=== PATIENT | female | born 1935 | race Caucasian/White ===

== ENCOUNTER 2018-05-02 12:14 | Emergency (ER) | payer MEDICARE, BC ==
--- NOTE | 2018-05-02 13:34 | EDM.PDOC ---
ED HPI GENERAL MEDICAL PROBLEM - General Chief Complaint: Lower Extremity Injury/Pain Stated Complaint: INJURED RIGHT FOOT Time Seen by Provider: 05/02/18 13:33 Source of Information: Reports: Patient, RN History Limitations: Reports: No Limitations - History of Present Illness INITIAL COMMENTS - FREE TEXT/NARRATIVE: 83 yo female here with a foot injury from struggling to get through a stuck door and ended up falling when it suddenly burst open. Has pain to the distal R foot. 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 (see below) (none) Right Feet Pain Score (Numeric/FACES): 8 - Related Data Allergies Allergy/AdvReac Type Severity Reaction Status Date / Time No Known Allergies Allergy Verified 05/02/18 13:15 Home Meds: Home Meds Atenolol 02/26/14 [History] Baby Aspirin 02/26/14 [History] Calcium 02/26/14 [History] Fish Oil 02/26/14 [History] Fosamax 02/26/14 [History] Glucosamine Chondroitin 02/26/14 [History] Levothyroxine 02/26/14 [History] Omeprazole 02/26/14 [History] Tylenol 02/26/14 [History] Past Medical History HEENT History: Reports: Cataract, Impaired Vision Cardiovascular History: Reports: High Cholesterol, Hypertension Genitourinary History: Reports: Other (See Below) Other Genitourinary History: kidney cancer Musculoskeletal History: Reports: Fracture, Osteoporosis Endocrine/Metabolic History: Reports: Hypothyroidism Oncologic (Cancer) History: Reports: Renal - Past Surgical History HEENT Surgical History: Reports: Cataract Surgery GI Surgical History: Reports: Cholecystectomy, Other (See Below) Other GI Surgeries/Procedures: partial pancreas/spleen Musculoskeletal Surgical History: Reports: Hip Replacement, Knee Replacement Social & Family History - Tobacco Use Smoking Status *Q: Never Smoker - Alcohol Use Days Per Week of Alcohol Use: 7 Number of Drinks Per Day: 1 Total Drinks Per Week: 7 - Recreational Drug Use Recreational Drug Use: No Review of Systems - Review of Systems Review Of Systems: See Below Constitutional: Reports: No Symptoms Musculoskeletal: Reports: Foot Pain (right) Skin: Reports: No Symptoms Neurological: Reports: No Symptoms ED EXAM, GENERAL - Physical Exam Exam: See Below Exam Limited By: No Limitations General Appearance: Alert, WD/WN, No Apparent Distress Extremities: Pedal Edema, Other (distal foot R pain) Neurological: Alert, Oriented, CN II-XII Intact, Normal Cognition, No Motor/ Sensory Deficits Psychiatric: Normal Affect, Normal Mood Skin Exam: Warm, Dry, Intact, Normal Color, No Rash Course - Vital Signs Text/Narrative:: Has an orthopedic doctor back home in the [facility] she is going to follow up with. Last Recorded V/S: Last Vital Signs Temp 36.4 C 05/02/18 13:15 Pulse 63 05/02/18 13:15 Resp 16 05/02/18 13:15 BP 145/77 H 05/02/18 13:15 Pulse Ox 97 05/02/18 13:15 - Orders/Labs/Meds Orders: Active Orders 24 hr Category Date Time Status Foot Comp Min 3V Rt [CR] Stat Exams 05/02/18 13:32 Taken - Radiology Interpretation Free Text/Narrative:: R foot L-ard-[id number] 2nd thru 4th distal metatarsal fx's. Departure - Departure Time of Disposition: 14:15 Disposition: Home, Self-Care 01 Condition: Fair Clinical Impression: Metatarsal bone fracture Metatarsal fracture Qualifiers: Encounter type: initial encounter Metatarsal bone: second Fracture type: closed Fracture alignment: displaced Laterality: right Qualified Code(s): S92.321A - Displaced fracture of second metatarsal bone, right foot, initial encounter for closed fracture - Discharge Information *PRESCRIPTION DRUG MONITORING PROGRAM REVIEWED*: Not Applicable *COPY OF PRESCRIPTION DRUG MONITORING REPORT IN PATIENT ISABELLA: Not Applicable Instructions: Metatarsal Fracture Referrals: PCP,None [Primary Care Provider] - Forms: ED Department Discharge Additional Instructions: Elevate your foot above your heart to reduce swelling. Take ibuprofen 400 mg every 6 hrs with food for pain relief. Add either acetaminophen or [place] for added relief. Use a walker to assist with ambulation. You can put weight on your right heel when going to the bathroom, otherwise none. See your orthopedic doctor pam. Take your X-rays to your visit. Fan wrap to help with swelling reduction. - My Orders Last 24 Hours: My Active Orders 05/02/18 13:32 Foot Comp Min 3V Rt [CR] Stat - Assessment/Plan Last 24 Hours: My Active Orders 05/02/18 13:32 Foot Comp Min 3V Rt [CR] Stat
--- NOTE | 2018-05-02 15:14 | CR ---
FOOT RIGHT 3 views CLINICAL HISTORY:Trauma FINDINGS: Patient has displaced fractures of the second third and fourth distal metatarsals. There is some irregularity of the distal aspect of the fifth metatarsal and a nondisplaced fracture is not ex cluded. Bones are osteopenic. There is interphalangeal joint space narrowing Impression: Displaced fractures of the second through fourth distal metatarsals with suspicion for no ndisplaced fracture of the distal fifth metatarsal
== END 2018-05-02 14:26 | disposition home or self-care (01) ==
LOC: JP.ED 12:14
DX: S92.321A Displaced fracture of second metatarsal bone, right foot, initial encounter for closed fracture (principal); I10 Essential (primary) hypertension; E03.9 Hypothyroidism, unspecified; E78.00 Pure hypercholesterolemia, unspecified; W01.0XXA Fall on same level from slipping, tripping and stumbling without subsequent striking against object, initial encounter
CPT/HCPCS: 73630-26-RT; 73630-RT; 99283; 99284

== ENCOUNTER 2019-12-20 16:08 | Inpatient (IN) | payer MEDICARE, BC ==
[2019-12-20] MEDS ORDERED: HYDROmorphone 0.5 MG/0.5 ML Syringe IVPUSH PRN (16:49)
--- NOTE | 2019-12-20 16:52 | EDM.PDOC ---
ED HPI GENERAL MEDICAL PROBLEM - General Chief Complaint: Lower Extremity Injury/Pain Stated Complaint: FALL VIA NORTH Time Seen by Provider: 12/20/19 16:20 Source of Information: Reports: Patient, EMS History Limitations: Reports: No Limitations - History of Present Illness Onset: Today Duration: Hour(s): (2) Location: Reports: Lower Extremity, Right Quality: Reports: Sharp, Throbbing Severity: Severe Improves with: Reports: Rest Worsens with: Reports: Movement Context: Reports: Other (Patient states she just fell. She did not trip and did not feel dizzy. She thinks she may have had hip pain before falling. 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 Right Hip Pain Score (Numeric/FACES): 3 - Related Data Allergies Allergy/AdvReac Type Severity Reaction Status Date / Time No Known Allergies Allergy Verified 12/20/19 16:18 Home Meds: Home Meds Calcium 1 tab PO DAILY 02/26/14 [History] Levothyroxine 100 mcg PO DAILY 02/26/14 [History] Tylenol 500 mg PO ASDIRECTED 02/26/14 [History] Acetaminophen/HYDROcodone [[place] 325-5 MG] 1 - 2 tab PO Q6H PRN #30 tab [Rx] Cholecalciferol (Vitamin D3) [Vitamin D3] 1,000 unit PO DAILY 12/20/19 [History] Losartan [Cozaar] 12.5 mg PO DAILY 12/20/19 [History] Metoprolol Succinate [Toprol XL] 25 mg PO DAILY 12/20/19 [History] Pantoprazole [ProTONIX] 40 mg PO DAILY 12/20/19 [History] Past Medical History HEENT History: Reports: Cataract, Impaired Vision Cardiovascular History: Reports: High Cholesterol, Hypertension Gastrointestinal History: Reports: None Genitourinary History: Reports: Other (See Below) Other Genitourinary History: kidney cancer 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: Musculoskeletal History: Reports: Fracture, Osteoporosis Endocrine/Metabolic History: Reports: Hypothyroidism Hematologic History: Reports: Blood Transfusion(s) Oncologic (Cancer) History: Reports: Renal - Past Surgical History Head Surgeries/Procedures: Reports: None HEENT Surgical History: Reports: Cataract Surgery Cardiovascular Surgical History: Reports: None GI Surgical History: Reports: Cholecystectomy, Other (See Below) Other GI Surgeries/Procedures: partial pancreas/spleen Female Surgical History: Reports: Salpingo-Oophorectomy Endocrine Surgical History: Reports: None Musculoskeletal Surgical History: Reports: Hip Replacement, Knee Replacement Oncologic Surgical History: Reports: None Dermatological Surgical History: Reports: None Social & Family History - Tobacco Use Smoking Status *Q: Never Smoker Second Hand Smoke Exposure: No - Caffeine Use Caffeine Use: Reports: None - Alcohol Use Days Per Week of Alcohol Use: 7 Number of Drinks Per Day: 1 Total Drinks Per Week: 7 - Recreational Drug Use Recreational Drug Use: No - Living Situation & Occupation Living situation: Reports: Social History Comment: SHe lives in [facility]. Previous surgery at [facility]. She is here at their cabin. Review of Systems - Review of Systems Review Of Systems: See Below Constitutional: Reports: No Symptoms. Denies: Fever Eyes: Reports: No Symptoms Ears: Denies: Dizziness Nose: Reports: No Symptoms Respiratory: Reports: No Symptoms Cardiovascular: Reports: No Symptoms GI/Abdominal: Denies: Abdominal Pain Musculoskeletal: Reports: Joint Pain. Denies: Neck Pain Skin: Reports: No Symptoms Neurological: Reports: No Symptoms. Denies: Confusion, Dizziness, Headache, Trouble Speaking Psychiatric: Reports: No Symptoms ED EXAM, GENERAL - Physical Exam Exam: See Below Exam Limited By: No Limitations General Appearance: Alert, WD/WN, Moderate Distress Eye Exam: Bilateral Eye: Normal Inspection, PERRL Ear Exam: Bilateral Ear: Auricle Normal Nose: Normal Inspection Throat/Mouth: Normal Inspection, Normal Voice Head: No: Facial Swelling, Facial Tenderness Neck: Non-Tender, Full Range of Motion Respiratory/Chest: No Respiratory Distress Cardiovascular: Normal Peripheral Pulses Peripheral Pulses: 1+: Dorsalis Pedis (L), Dorsalis Pedis (R) GI/Abdominal: Soft, Non-Tender Extremities: Normal Inspection, No Pedal Edema, Limited Range of Motion, Other ( Right leg shortened and externally rotated. There is marked exacerbation of right hip pain with external rotation of the leg. There is an excellent dorsalis pedis pulse on the right and the patient has good R foot sensation medially and laterally.). No: Normal Range of Motion Neurological: Alert, Oriented, Normal Cognition, No Motor/Sensory Deficits Psychiatric: Normal Affect, Normal Mood Skin Exam: Warm, Dry, Intact EKG INTERPRETATION EKG Date: 12/20/19 Time: 16:50 Rhythm: NSR Rate (Beats/Min): 75 Anthony: Normal P-Wave: Present QRS: Normal ST-T: Normal Course - Vital Signs Text/Narrative:: Patient has a right-sided intratrochanteric proximal femur fracture. I have discussed this with the patient and she prefers to stay here for her surgery. Discussed patient with orthopedist. Last Recorded V/S: Last Vital Signs Temp 36.5 C 12/20/19 16:21 Pulse 77 12/20/19 17:38 Resp 16 12/20/19 17:38 BP 170/84 H 12/20/19 17:38 Pulse Ox 98 12/20/19 17:38 - Orders/Labs/Meds Orders: Active Orders 24 hr Category Date Time Status EKG Documentation Completion [RC] ASDIRECTED Care 12/20/19 16:46 Active Chest 1V Frontal [CR] Stat Exams 12/20/19 16:47 Taken Hip Min 2V or 3V w Pelvis Rt [CR] Stat Exams 12/20/19 16:47 Taken MYOGLOBIN, SERUM Urgent Lab 12/20/19 17:10 Received UA W/MICROSCOPIC [URIN] Urgent Lab 12/20/19 16:45 Ordered HYDROmorphone [Dilaudid] Med 12/20/19 16:49 Active 0.5 mg IVPUSH Q1H PRN Sodium Chloride 0.9% [Normal Saline] 1,000 ml Med 12/20/19 17:00 Active IV ASDIRECTED EKG 12 Lead [EK] Urgent Ther 12/20/19 16:45 Ordered Medication Orders Hydromorphone HCl (Dilaudid) 0.5 mg IVPUSH Q1H PRN PRN Reason: Pain (moderate 4-6) Last Admin: 12/20/19 16:58 Dose: 0.5 mg Sodium Chloride (Normal Saline) 1,000 mls @ 500 mls/hr IV ASDIRECTED MARYELLEN Last Admin: 12/20/19 17:00 Dose: 500 mls/hr Labs: Laboratory Tests 12/20/19 12/20/19 12/20/19 Range/Units 17:10 17:10 17:10 WBC 16.0 H (4.5-11.0) K/uL RBC 4.27 (3.30-5.50) M/uL Hgb 12.6 (12.0-15.0) g/dL Hct 38.2 (36.0-48.0) % MCV 90 (80-98) fL MCH 30 (27-31) pg MCHC 33 (32-36) % Plt Count 368 (150-400) K/uL PT 10.6 (9.5-12.0) sec INR 0.98 (0.80-1.20) Sodium 139 L (140-148) mmol/L Potassium 4.0 (3.6-5.2) mmol/L Chloride 102 (100-108) mmol/L Carbon Dioxide 27 (21-32) mmol/L Anion Gap 14.0 (5.0-14.0) mmol/L BUN 16 (7-18) mg/dL Creatinine 0.9 (0.6-1.0) mg/dL Est Cr Clr Drug Dosing 48.61 mL/min Estimated GFR (MDRD) 60 (>60) Glucose 112 H (74-106) mg/dL Calcium 8.8 (8.5-10.1) mg/dL Total Bilirubin 0.5 (0.2-1.0) mg/dL AST 19 (15-37) U/L ALT 24 (12-78) U/L Alkaline Phosphatase 65 (46-116) U/L Total Protein 7.1 (6.4-8.2) g/dL Albumin 3.5 (3.4-5.0) g/dL Globulin 3.6 H (2.3-3.5) g/dL Albumin/Globulin Ratio 1.0 L (1.2-2.2) Meds: Medications Generic Name Dose Route Start Last Admin Trade Name Freq PRN Reason Stop Dose Admin Hydromorphone HCl 0.5 mg 12/20/19 16:49 12/20/19 16:58 Dilaudid IVPUSH 0.5 mg Q1H PRN Administration Pain (moderate 4-6) Sodium Chloride 1,000 mls @ 500 mls/hr 12/20/19 17:00 12/20/19 17:00 Normal Saline IV 500 mls/hr ASDIRECTED MARYELLEN Administration Departure - Departure Time of Disposition: 18:30 Disposition: Admitted As Inpatient 68 Clinical Impression: Intertrochanteric fracture, hip - Discharge Information Referrals: PCP,None [Primary Care Provider] - Forms: ED Department Discharge Sepsis Event Note - Evaluation Sepsis Screening Result: No Definite Risk - Focused Exam Vital Signs: Vital Signs Temp Pulse Resp BP Pulse Ox 12/20/19 17:38 77 16 170/84 H 98 12/20/19 16:21 36.5 C 71 13 196/60 H 96 12/20/19 16:15 36.5 C 71 13 196/60 H 96 Date Exam was Performed: 12/20/19 Time Exam was Performed: 18:29 - My Orders Last 24 Hours: My Active Orders 12/20/19 16:45 UA W/MICROSCOPIC [URIN] Urgent EKG 12 Lead [EK] Urgent 12/20/19 16:46 EKG Documentation Completion [RC] ASDIRECTED 12/20/19 16:47 Chest 1V Frontal [CR] Stat Hip Min 2V or 3V w Pelvis Rt [CR] Stat 12/20/19 16:49 HYDROmorphone [Dilaudid] 0.5 mg IVPUSH Q1H PRN 12/20/19 17:00 Sodium Chloride 0.9% [Normal Saline] 1,000 ml IV ASDIRECTED 12/20/19 17:10 MYOGLOBIN, SERUM Urgent - Assessment/Plan Last 24 Hours: My Active Orders 12/20/19 16:45 UA W/MICROSCOPIC [URIN] Urgent EKG 12 Lead [EK] Urgent 12/20/19 16:46 EKG Documentation Completion [RC] ASDIRECTED 12/20/19 16:47 Chest 1V Frontal [CR] Stat Hip Min 2V or 3V w Pelvis Rt [CR] Stat 12/20/19 16:49 HYDROmorphone [Dilaudid] 0.5 mg IVPUSH Q1H PRN 12/20/19 17:00 Sodium Chloride 0.9% [Normal Saline] 1,000 ml IV ASDIRECTED 12/20/19 17:10 MYOGLOBIN, SERUM Urgent
[2019-12-20] MEDS ORDERED: Sodium Chloride 0.9% 1,000 ML IV SCH (17:00)
[2019-12-20] MEDS ORDERED: HYDROmorphone 1 MG/ML Syringe IVPUSH ONE (19:02)
[2019-12-20] MEDS ORDERED: Ondansetron 4 MG/2 ML SDV IVPUSH ONE (19:02)
--- NOTE | 2019-12-20 19:57 | PCM.HP.2 ---
H&P History of Present Illness - General Date of Service: 12/20/19 Admit Problem/Dx: Admission Diagnosis/Problem Admission Diagnosis/Problem Hip fracture requiring operative repair Source of Information: Patient History Limitations: Reports: No Limitations - History of Present Illness Initial Comments - Free Text/Narative: chief complaint: right hip pain Improves with: Reports: Rest Worsens with: Reports: Movement Context: Reports: Patient states she just fell at 3 pm. She did not trip and did not feel dizzy. She thinks she may have had hip pain before falling. This occurred at home and she laid on the floor for approximately 1 hour. Associated Symptoms: Denies: Confusion, Diaphoresis, Fever/Chills, Headaches, Nausea/Vomiting, Rash, Shortness of Breath Treatments ANIMAL SERVICES OFFICER: Reports: See EMS Report Onset of Symptoms: Reports: Sudden Symptom Onset Date: 12/20/19 Symptom Onset Time: 15:00 Duration of Symptoms: Reports: Hour(s):, Constant (right hip pain) Location: Reports: Lower Extremity, Right, Radiates to (right hip-pelvis) Quality: Reports: Same as Previous Episode (hx of left hip fracture) Improves with: Reports: Immobilization Worsens with: Reports: Movement Context: Reports: Other (fall at home) Associated Symptoms: Reports: No Other Symptoms Right Hip Pain Score (Numeric/FACES): 3 - Related Data Allergies/Adverse Reactions: Allergies Allergy/AdvReac Type Severity Reaction Status Date / Time No Known Allergies Allergy Verified 12/20/19 16:18 Home Medications: Home Meds Calcium 1 tab PO DAILY 02/26/14 [History] Levothyroxine 100 mcg PO DAILY 02/26/14 [History] Tylenol 500 mg PO ASDIRECTED 02/26/14 [History] Acetaminophen/HYDROcodone [Jupiter 325-5 MG] 1 - 2 tab PO Q6H PRN #30 tab [Rx] Cholecalciferol (Vitamin D3) [Vitamin D3] 1,000 unit PO DAILY 12/20/19 [History] Losartan [Cozaar] 12.5 mg PO DAILY 12/20/19 [History] Metoprolol Succinate [Toprol XL] 25 mg PO DAILY 12/20/19 [History] Pantoprazole [ProTONIX] 40 mg PO DAILY 12/20/19 [History] Past Medical History HEENT History: Reports: Cataract, Impaired Vision Cardiovascular History: Reports: High Cholesterol, Hypertension Gastrointestinal History: Reports: None Genitourinary History: Reports: Other (See Below) Other Genitourinary History: kidney cancer [employer]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: Musculoskeletal History: Reports: Fracture, Osteoporosis Endocrine/Metabolic History: Reports: Hypothyroidism Hematologic History: Reports: Blood Transfusion(s) Oncologic (Cancer) History: Reports: Renal - Past Surgical History Head Surgeries/Procedures: Reports: None HEENT Surgical History: Reports: Cataract Surgery Cardiovascular Surgical History: Reports: None GI Surgical History: Reports: Cholecystectomy, Other (See Below) Other GI Surgeries/Procedures: partial pancreas/spleen Female Surgical History: Reports: Salpingo-Oophorectomy Endocrine Surgical History: Reports: None Musculoskeletal Surgical History: Reports: Hip Replacement, Knee Replacement Oncologic Surgical History: Reports: None Dermatological Surgical History: Reports: None Social & Family History - Tobacco Use Smoking Status *Q: Never Smoker Second Hand Smoke Exposure: No - Caffeine Use Caffeine Use: Reports: None - Alcohol Use Days Per Week of Alcohol Use: 7 Number of Drinks Per Day: 1 Total Drinks Per Week: 7 - Recreational Drug Use Recreational Drug Use: No - Living Situation & Occupation Living situation: Reports: 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 where they have been sheltering in place when the Covid Pandemic started.) H&P Review of Systems - Review of Systems: Review Of Systems: See Below General: Reports: Other (right hip pain) HEENT: Reports: Glasses Pulmonary: Reports: No Symptoms Cardiovascular: Reports: No Symptoms, Other (reports HTN Mrs. Helms take her medications in the evening for this) Gastrointestinal: Reports: Stool Incontinence (intermittent stool incontinence due to have a foot of colon removed in 2017.) Genitourinary: Reports: No Symptoms Musculoskeletal: Reports: Back Pain (chronic), Muscle Pain (muscle and joint pain from osteoporosis), Other (ambulates with assistance of cane. right hip pain with any movement) Skin: Reports: No Symptoms, Dryness Psychiatric: Reports: No Symptoms Neurological: Reports: No Symptoms Hematologic/Lymphatic: Reports: No Symptoms Immunologic: Reports: No Symptoms Exam - Exam Exam: See Below - Vital Signs Vital Signs: Last Vital Signs Temp 36.5 C 12/20/19 16:21 Pulse 82 12/20/19 19:11 Resp 20 12/20/19 19:11 BP 193/94 H 12/20/19 19:11 Pulse Ox 98 12/20/19 19:11 Weight: 79.832 kg - Exam Quality Assessment: Urinary Catheter, DVT Prophylaxis, Other (position of comfort for right hip fracture) General: Alert, Oriented, Moderate Distress (shaking for pain) HEENT: PERRLA, Conjunctiva Clear, EOMI, Glasses, Other (natureal teeth present) Neck: Supple, Trachea Midline Lungs: Clear to Auscultation, Normal Respiratory Effort Cardiovascular: Regular Rate, Regular Rhythm, Normal S1, Normal S2 GI/Abdominal Exam: Normal Bowel Sounds, Soft, No Organomegaly, Other (right lower abdomen and pelvis ) (Female) Exam: Normal External Exam, Other (hameed cath inplace with clear yellow urine present >1000ml in drainage bag) Rectal (Female) Exam: Deferred Extremities: Leg Pain (right leg due to fracture), Limited Range of Motion ( right leg with rotation of foot. pain with any movement. ), Other (Normal Inspection, No Pedal Edema, Limited Range of Motion, Other (Right leg shortened and externally rotated. There is marked exacerbation of right hip pain with external rotation of the leg. There is an excellent dorsalis pedis pulse on the right and the patient has good R foot sensation medially and laterally.). No: Normal Range of Motion) Peripheral Pulses: 0: Dorsalis Pedis (L), Dorsalis Pedis (R) Skin: Cool (lower legs cool- patient reports her lower legs are always cool. had evaluation at [place]. no concerns.) Neurological: Normal Speech, Normal Tone, Sensation Intact, Reflexes Unequal ( 2nd to right hip fracture) Neuro Extensive - Mental Status: Alert, Oriented x3, Normal Mood/Affect, Memory Intact Neuro Extensive - Motor, Sensory, Reflexes: Motor/Sensory Deficits Psychiatric: Alert, Normal Affect, Normal Mood - Patient Data Lab Results Last 24 hrs: Laboratory Results - last 24 hr 12/20/19 12/20/19 12/20/19 Range/Units 17:10 17:10 17:10 WBC 16.0 H (4.5-11.0) K/uL RBC 4.27 (3.30-5.50) M/uL Hgb 12.6 (12.0-15.0) g/dL Hct 38.2 (36.0-48.0) % MCV 90 (80-98) fL MCH 30 (27-31) pg MCHC 33 (32-36) % Plt Count 368 (150-400) K/uL PT 10.6 (9.5-12.0) sec INR 0.98 (0.80-1.20) Sodium 139 L (140-148) mmol/L Potassium 4.0 (3.6-5.2) mmol/L Chloride 102 (100-108) mmol/L Carbon Dioxide 27 (21-32) mmol/L Anion Gap 14.0 (5.0-14.0) mmol/L BUN 16 (7-18) mg/dL Creatinine 0.9 (0.6-1.0) mg/dL Est Cr Clr Drug Dosing 48.61 mL/min Estimated GFR (MDRD) 60 (>60) Glucose 112 H (74-106) mg/dL Calcium 8.8 (8.5-10.1) mg/dL Total Bilirubin 0.5 (0.2-1.0) mg/dL AST 19 (15-37) U/L ALT 24 (12-78) U/L Alkaline Phosphatase 65 (46-116) U/L Total Protein 7.1 (6.4-8.2) g/dL Albumin 3.5 (3.4-5.0) g/dL Globulin 3.6 H (2.3-3.5) g/dL Albumin/Globulin Ratio 1.0 L (1.2-2.2) Urine Color (YELLOW) Urine Appearance (CLEAR) Urine pH (5.0-8.0) Ur Specific [place] (1.008-1.030) Urine Protein (NEGATIVE) mg/dL Urine Glucose (UA) (NEGATIVE) mg/dL Urine Ketones (NEGATIVE) mg/dL Urine Occult Blood (NEGATIVE) Urine Nitrite (NEGATIVE) Urine Bilirubin (NEGATIVE) Urine Urobilinogen (0.2-1.0) EU/dL Ur Leukocyte Esterase (NEGATIVE) Urine RBC (0-5) Urine WBC (0-5) Ur Epithelial Cells Amorphous Sediment Urine Bacteria Urine Mucus 12/20/19 Range/Units 19:11 WBC (4.5-11.0) K/uL RBC (3.30-5.50) M/uL Hgb (12.0-15.0) g/dL Hct (36.0-48.0) % MCV (80-98) fL MCH (27-31) pg MCHC (32-36) % Plt Count (150-400) K/uL PT (9.5-12.0) sec INR (0.80-1.20) Sodium (140-148) mmol/L Potassium (3.6-5.2) mmol/L Chloride (100-108) mmol/L Carbon Dioxide (21-32) mmol/L Anion Gap (5.0-14.0) mmol/L BUN (7-18) mg/dL Creatinine (0.6-1.0) mg/dL Est Cr Clr Drug Dosing mL/min Estimated GFR (MDRD) (>60) Glucose (74-106) mg/dL Calcium (8.5-10.1) mg/dL Total Bilirubin (0.2-1.0) mg/dL AST (15-37) U/L ALT (12-78) U/L Alkaline Phosphatase (46-116) U/L Total Protein (6.4-8.2) g/dL Albumin (3.4-5.0) g/dL Globulin (2.3-3.5) g/dL Albumin/Globulin Ratio (1.2-2.2) Urine Color Yellow (YELLOW) Urine Appearance Slightly cloudy A (CLEAR) Urine pH 7.0 (5.0-8.0) Ur Specific [place] 1.025 (1.008-1.030) Urine Protein Negative (NEGATIVE) mg/dL Urine Glucose (UA) Negative (NEGATIVE) mg/dL Urine Ketones Negative (NEGATIVE) mg/dL Urine Occult Blood Negative (NEGATIVE) Urine Nitrite Negative (NEGATIVE) Urine Bilirubin Negative (NEGATIVE) Urine Urobilinogen 0.2 (0.2-1.0) EU/dL Ur Leukocyte Esterase Trace H (NEGATIVE) Urine RBC 0-5 (0-5) Urine WBC 0-5 (0-5) Ur Epithelial Cells Few Amorphous Sediment Few Urine Bacteria Not seen Urine Mucus Not seen Result Diagrams: 12/20/19 17:10 12/20/19 17:10 Sepsis Event Note - Evaluation Sepsis Screening Result: No Definite Risk - Focused Exam Vital Signs: Vital Signs Temp Pulse Resp BP Pulse Ox 12/20/19 19:11 82 20 193/94 H 98 12/20/19 18:39 80 16 179/91 H 98 12/20/19 17:38 77 16 170/84 H 98 12/20/19 16:21 36.5 C 71 13 196/60 H 96 12/20/19 16:15 36.5 C 71 13 196/60 H 96 Date Exam was Performed: 12/20/19 Time Exam was Performed: 21:19 - Problem List (1) Intertrochanteric fracture, hip SNOMED Code(s): 077113042 ICD Code: S72.143A - DISPLACED INTERTROCHANTERIC FRACTURE OF UNSP FEMUR, INIT Status: Acute Priority: High Current Visit: Yes Onset Date: ~ (2) Hypertension SNOMED Code(s): 69114969 ICD Code: I10 - ESSENTIAL (PRIMARY) HYPERTENSION Status: Acute Priority: High Current Visit: Yes Qualifiers: Hypertension type: unspecified Qualified Code(s): I10 - Essential (primary ) hypertension (3) Hypothyroidism SNOMED Code(s): 78125680 ICD Code: E03.9 - HYPOTHYROIDISM, UNSPECIFIED Status: Acute Priority: Low Current Visit: Yes (4) Osteoporosis of multiple sites SNOMED Code(s): 23609210 ICD Code: M81.0 - AGE-RELATED OSTEOPOROSIS W/O CURRENT PATHOLOGICAL FRACTURE Status: Acute Priority: Medium Current Visit: Yes (5) History of cancer SNOMED Code(s): 003262965 ICD Code: Z85.9 - PERSONAL HISTORY OF MALIGNANT NEOPLASM, UNSPECIFIED Status: Acute Priority: Low Current Visit: Yes Problem List Initiated/Reviewed/Updated: Yes Orders Last 24hrs: Active Orders 24 hr Category Date Time Status Patient Status Manage Transfer [TRANSFER] Routine ADT 12/20/19 19:39 Ordered EKG Documentation Completion [RC] ASDIRECTED Care 12/20/19 16:46 Active Urinary Catheter Assessment [RC] ASDIRECTED Care 12/20/19 18:31 Active Urinary Catheter Insertion [Insert Urinary Catheter] [ Care 12/20/19 18:30 Ordered OM.PC] Q24H Chest 1V Frontal [CR] Stat Exams 12/20/19 16:47 Taken Hip Min 2V or 3V w Pelvis Rt [CR] Stat Exams 12/20/19 16:47 Taken MYOGLOBIN, SERUM Urgent Lab 12/20/19 17:10 Received HYDROmorphone [Dilaudid] Med 12/20/19 16:49 Active 0.5 mg IVPUSH Q1H PRN Sodium Chloride 0.9% [Normal Saline] 1,000 ml Med 12/20/19 17:00 Active IV ASDIRECTED Resuscitation Status Routine Resus Stat 12/20/19 19:40 Ordered EKG 12 Lead [EK] Urgent Ther 12/20/19 16:45 Ordered Medication Orders Hydromorphone HCl (Dilaudid) 0.5 mg IVPUSH Q1H PRN PRN Reason: Pain (moderate 4-6) Last Admin: 12/20/19 16:58 Dose: 0.5 mg Sodium Chloride (Normal Saline) 1,000 mls @ 500 mls/hr IV ASDIRECTED MARYELLEN Last Admin: 12/20/19 17:00 Dose: 500 mls/hr Assessment/Plan Comment:: ASSESSMENT / PLAN This is a 84 year old female presents to the ER via EMS for evaluation of right hip and leg pain. She reports she just got home was sitting at a chair when to get up, lost balance and fell on right side. She felt immediate pain and unable to get up. She lay on the floor for about one hour before her family got home. Lives in the [facility] but is sheltering in place at their cabin on [facility]. Imaging: Patient has a right-sided intratrochanteric proximal femur fracture. ER Medical Doctor discussed this with the patient either transfer to [facility] and she prefers to stay here for her surgery. Labs: CBC- wbc 16.0, hgb 12.6, hct 38.2 plt 368, INR 0.98, Chemistries Na 139 , K+ 4.0, cl 102, anion gap14.0, bun 16, cr 0.9, gluc 112, urine normal, myoglobin pending at time of admission RIGHT HIP FRACTURE-INTERTROCHANTERIC FRACTURE- She had a fall at home and fracture is noted on imaging. Mrs. Helms would like to stay at [facility] to have surgical intervention. Dr. Lazcano was consult and recommendation for surgery repair of fracture on Sunday12-22-2019. -Admit to [address] [place] [address]-Surg -IV Fluids for rehydration NS 125 mL per hour -IV Dilaudid 1 mg every 2 hours prn pain -PO Hydrocodone 2 tabs po every 4 hours as needed for pain control -vital signs every 4 hours and continuos pulse ox -Advise to notify nurses of any fever or worsen pain -Pressure reducing mattress and position of comfort for hip fracture -daily a.m. labs: CBC, BMP HYPERTENSION -order home medications HYPOTHYROIDISM -Levothyroxine daily OSTEOPOROSIS- reports first hip fracture at age 52 years. Has had chronic joint/ bone pain. 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 -She has had chemotherapy for 3 months. Annual follow up at [facility]- next due January 2020. Maintenance issues -Orders home meds- reviewed -Nutrition: Regular diet, NPO after midnight on Sunday night. -Hameed catheter- placed in ER for right hip fracture and strict I&O -DVT: SCD, surgery 12-22-19 -PPI; Protonix 40mg daily CODE STATUS: FULL Admission status: Admit to [address] [place] [address] Admission justification. This patient will be admitted for inpatient services and is medically appropriate meeting medical necessity for inpatient admission as outlined in my documentation. I reasonably expect the patient will require inpatient services that span. Time over 2 midnights. I reasonably expect this patient to be discharged or transferred within 96 hours after admission to the critical access hospital. Disposition: home Primary care provider: Dr. Power, [facility] and [facility] Urology Hospitalist: Dr. Potts - Mortality Measure Prognosis:: Good
[2019-12-20] MEDS ORDERED: Ondansetron 4 MG/2 ML SDV IV PRN (20:05)
[2019-12-20] MEDS ORDERED: Albuterol 0.083% 2.5 MG/3 ML Neb Soln NEB PRN (20:05)
[2019-12-20] MEDS ORDERED: Ondansetron 4 MG Tab.DIS PO PRN (20:05)
[2019-12-20] MEDS ORDERED: Acetaminophen 325 MG Tab PO PRN (20:05)
[2019-12-20] MEDS ORDERED: Docusate Sodium 100 MG Cap PO PRN (20:05)
[2019-12-20] MEDS: Acetaminophen/HYDROcodone 325-5 MG Tab PO PRN (20:30)
[2019-12-20] MEDS: Metoprolol Succinate 25 MG Tab.ER PO SCH (20:32)
[2019-12-20] MEDS: Losartan 25 MG Tab PO SCH (20:32)
[2019-12-20] MEDS: Sodium Chloride 0.9% 1,000 ML IV SCH (20:43)
[2019-12-20] MEDS: HYDROmorphone 1 MG/ML Syringe IVPUSH PRN ×2 (21:24→23:45)
[2019-12-21] MEDS: Acetaminophen/HYDROcodone 325-5 MG Tab PO PRN ×6 (01:46→22:18)
[2019-12-21] MEDS: HYDROmorphone 1 MG/ML Syringe IVPUSH PRN ×5 (04:01→23:33)
[2019-12-21] MEDS: Sodium Chloride 0.9% 1,000 ML IV SCH (04:01)
[2019-12-21] MEDS: Pantoprazole 40 MG Tab.CR PO SCH (08:10)
[2019-12-21] MEDS: Levothyroxine 100 MCG Tab PO SCH (08:10)
--- NOTE | 2019-12-21 09:59 | PCM.PN ---
- General Info Date of Service: 12/21/19 Subjective Update: Ms. Helms is an 84-year-old woman who was admitted through the emergency department last night after she fell and experienced right hip pain. Evaluation in the emergency department documented a right intertrochanteric hip fracture. Dr. Lazcano was consulted and has agreed to see the patient for surgical repair tomorrow morning. She reports that she has been comfortable with good pain control on current medical therapy. She is on a continuous pulse oximeter. She denies any previous history of significant cardiac or pulmonary disease, no recent symptoms of chest pain or pressure or increased shortness of breath. She requires use of a cane when ambulating but is able to walk at least 2 blocks without having to stop because of symptoms. She has had previous general anesthetic and denies any history of adverse reaction and no family history of adverse reaction to general anesthesia. She denies any history of bleeding abnormalities, deep vein thrombosis, or pulmonary emboli. Functional Status: Reports: Tolerating Diet. Denies: Ambulating - Review of Systems General: Denies: Fever, Chills Pulmonary: Reports: No Symptoms Cardiovascular: Reports: No Symptoms Gastrointestinal: Reports: No Symptoms Musculoskeletal: Reports: Joint Pain (Right hip pain) - Patient Data Vitals - Most Recent: Last Vital Signs Temp 96.8 F L 12/21/19 07:28 Pulse 65 12/21/19 07:28 Resp 16 12/21/19 07:28 BP 141/64 H 12/21/19 07:28 Pulse Ox 96 12/21/19 07:30 Weight - Most Recent: 176 lb I&O - Last 24 Hours: Intake & Output 12/20/19 12/21/19 12/21/19 22:59 06:59 14:59 Intake Total 1717 Output Total 850 750 Balance -850 967 Lab Results Last 24 Hours: Laboratory Results - last 24 hr 12/20/19 12/20/19 12/20/19 Range/Units 17:10 17:10 17:10 WBC 16.0 H (4.5-11.0) K/uL RBC 4.27 (3.30-5.50) M/uL Hgb 12.6 (12.0-15.0) g/dL Hct 38.2 (36.0-48.0) % MCV 90 (80-98) fL MCH 30 (27-31) pg MCHC 33 (32-36) % Plt Count 368 (150-400) K/uL Neut % (Auto) (36-66) % Lymph % (Auto) (24-44) % [place] % (Auto) (2-6) % Eos % (Auto) (2-4) % Baso % (Auto) (0-1) % PT 10.6 (9.5-12.0) sec INR 0.98 (0.80-1.20) Sodium 139 L (140-148) mmol/L Potassium 4.0 (3.6-5.2) mmol/L Chloride 102 (100-108) mmol/L Carbon Dioxide 27 (21-32) mmol/L Anion Gap 14.0 (5.0-14.0) mmol/L BUN 16 (7-18) mg/dL Creatinine 0.9 (0.6-1.0) mg/dL Est Cr Clr Drug Dosing 48.61 mL/min Estimated GFR (MDRD) 60 (>60) Glucose 112 H (74-106) mg/dL Calcium 8.8 (8.5-10.1) mg/dL Total Bilirubin 0.5 (0.2-1.0) mg/dL AST 19 (15-37) U/L ALT 24 (12-78) U/L Alkaline Phosphatase 65 (46-116) U/L Total Protein 7.1 (6.4-8.2) g/dL Albumin 3.5 (3.4-5.0) g/dL Globulin 3.6 H (2.3-3.5) g/dL Albumin/Globulin Ratio 1.0 L (1.2-2.2) Urine Color (YELLOW) Urine Appearance (CLEAR) Urine pH (5.0-8.0) Ur Specific [place] (1.008-1.030) Urine Protein (NEGATIVE) mg/dL Urine Glucose (UA) (NEGATIVE) mg/dL Urine Ketones (NEGATIVE) mg/dL Urine Occult Blood (NEGATIVE) Urine Nitrite (NEGATIVE) Urine Bilirubin (NEGATIVE) Urine Urobilinogen (0.2-1.0) EU/dL Ur Leukocyte Esterase (NEGATIVE) Urine RBC (0-5) Urine WBC (0-5) Ur Epithelial Cells Amorphous Sediment Urine Bacteria Urine Mucus 12/20/19 12/21/19 12/21/19 Range/Units 19:11 04:52 04:52 WBC 13.6 H (4.5-11.0) K/uL RBC 3.80 (3.30-5.50) M/uL Hgb 10.9 L (12.0-15.0) g/dL Hct 34.6 L (36.0-48.0) % MCV 91 (80-98) fL MCH 29 (27-31) pg MCHC 32 (32-36) % Plt Count 306 (150-400) K/uL Neut % (Auto) 64 (36-66) % Lymph % (Auto) 26 (24-44) % [place] % (Auto) 9 H (2-6) % Eos % (Auto) 0 L (2-4) % Baso % (Auto) 0 (0-1) % PT (9.5-12.0) sec INR (0.80-1.20) Sodium 135 L (140-148) mmol/L Potassium 4.1 (3.6-5.2) mmol/L Chloride 100 (100-108) mmol/L Carbon Dioxide 27 (21-32) mmol/L Anion Gap 12.1 (5.0-14.0) mmol/L BUN 12 (7-18) mg/dL Creatinine 0.8 (0.6-1.0) mg/dL Est Cr Clr Drug Dosing 54.69 mL/min Estimated GFR (MDRD) > 60 (>60) Glucose 116 H (74-106) mg/dL Calcium 8.0 L (8.5-10.1) mg/dL Total Bilirubin (0.2-1.0) mg/dL AST (15-37) U/L ALT (12-78) U/L Alkaline Phosphatase (46-116) U/L Total Protein (6.4-8.2) g/dL Albumin (3.4-5.0) g/dL Globulin (2.3-3.5) g/dL Albumin/Globulin Ratio (1.2-2.2) Urine Color Yellow (YELLOW) Urine Appearance Slightly cloudy A (CLEAR) Urine pH 7.0 (5.0-8.0) Ur Specific [place] 1.025 (1.008-1.030) Urine Protein Negative (NEGATIVE) mg/dL Urine Glucose (UA) Negative (NEGATIVE) mg/dL Urine Ketones Negative (NEGATIVE) mg/dL Urine Occult Blood Negative (NEGATIVE) Urine Nitrite Negative (NEGATIVE) Urine Bilirubin Negative (NEGATIVE) Urine Urobilinogen 0.2 (0.2-1.0) EU/dL Ur Leukocyte Esterase Trace H (NEGATIVE) Urine RBC 0-5 (0-5) Urine WBC 0-5 (0-5) Ur Epithelial Cells Few Amorphous Sediment Few Urine Bacteria Not seen Urine Mucus Not seen Med Orders - Current: Current Medications Acetaminophen (Tylenol) 650 mg PO Q4H PRN PRN Reason: Pain (Mild 1-3)/fever Hydrocodone Bitart/Acetaminophen ([place] 325-5 Mg) 2 tab PO Q4H PRN PRN Reason: Pain (moderate 4-6) Last Admin: 12/21/19 06:15 Dose: 2 tab Albuterol (Proventil Neb Soln) 2.5 mg NEB Q4H PRN PRN Reason: Shortness Of Breath/wheezing Docusate Sodium (Colace) 100 mg PO BID PRN PRN Reason: Constipation Heparin Sodium (Porcine) (Heparin Sodium) 5,000 units SUBCUT Q12H [facility] Stop: 12/21/19 20:31 Hydromorphone HCl (Dilaudid) 1 mg IVPUSH Q2H PRN PRN Reason: Pain (severe 7-10) Last Admin: 12/21/19 08:11 Dose: 1 mg Sodium Chloride (Normal Saline) 1,000 mls @ 125 mls/hr IV ASDIRECTED [facility] Levothyroxine Sodium (Synthroid) 100 mcg PO DAILY@0730 [facility] Last Admin: 12/21/19 08:10 Dose: 100 mcg Losartan Potassium (Cozaar) 12.5 mg PO BEDTIME [facility] Last Admin: 12/20/19 20:32 Dose: 12.5 mg Melatonin (Melatonin) 6 mg PO BEDTIME PRN PRN Reason: Insomnia Metoprolol Succinate (Toprol Xl) 25 mg PO BEDTIME [facility] Last Admin: 12/20/19 20:32 Dose: 25 mg Ondansetron HCl (Zofran Odt) 4 mg PO Q6H PRN PRN Reason: Nausea able to take PO Ondansetron HCl (Zofran) 4 mg IV Q4H PRN PRN Reason: Nausea/Vomiting Pantoprazole Sodium (Protonix) 40 mg PO DAILY@0730 [facility] Last Admin: 12/21/19 08:10 Dose: 40 mg Discontinued Medications Hydromorphone HCl (Dilaudid) 0.5 mg IVPUSH Q1H PRN PRN Reason: Pain (moderate 4-6) Last Admin: 12/20/19 16:58 Dose: 0.5 mg Hydromorphone HCl (Dilaudid) 1 mg IVPUSH ONETIME ONE Stop: 12/20/19 19:03 Last Admin: 12/20/19 19:10 Dose: 1 mg Sodium Chloride (Normal Saline) 1,000 mls @ 500 mls/hr IV ASDIRECTED [facility] Last Admin: 12/20/19 17:00 Dose: 500 mls/hr Sodium Chloride (Normal Saline) 1,000 mls @ 125 mls/hr IV ASDIRECTED [facility] Last Admin: 12/21/19 04:01 Dose: 125 mls/hr Ondansetron HCl (Zofran) 4 mg IVPUSH ONETIME ONE Stop: 12/20/19 19:03 Last Admin: 12/20/19 23:42 Dose: Not Given - Exam Quality Assessment: Urine Catheter, DVT Prophylaxis General: Alert, Oriented, Cooperative, Moderate Distress Lungs: Clear to Auscultation, Normal Respiratory Effort Cardiovascular: Regular Rate, Regular Rhythm, No Murmurs GI/Abdominal Exam: Soft, Non-Tender, No Organomegaly, No Distention Extremities: No Pedal Edema Sepsis Event Note - Evaluation Sepsis Screening Result: No Definite Risk - Focused Exam Vital Signs: Vital Signs Temp Pulse Resp BP Pulse Ox 12/21/19 07:30 96 12/21/19 07:28 96.8 F L 65 16 141/64 H 96 12/21/19 04:06 97.3 F 62 18 136/53 L 99 12/21/19 01:09 98 12/20/19 23:05 97 F 79 16 159/74 H 99 Date Exam was Performed: 12/21/19 Time Exam was Performed: 09:59 - Problem List Review Problem List Initiated/Reviewed/Updated: Yes - My Orders Last 24 Hours: My Active Orders 12/21/19 08:30 Heparin Sodium 5,000 units SUBCUT Q12H 12/21/19 09:55 Convert IV to Saline Lock [OM.PC] Routine 12/22/19 00:01 Sodium Chloride 0.9% [Normal Saline] 1,000 ml IV ASDIRECTED 12/22/19 Breakfast NPO After Midnight [Nothing per Oral After Midnight Diet] [DIET] - Plan Plan:: ASSESSMENT / PLAN RIGHT INTERTROCHANTERIC HIP FRACTURE- She had a fall at home and fracture is noted on imaging. Reports pain is adequately controlled with current medications. She is cleared for surgery with anesthesia and is felt to be at low risk -N.p.o. after midnight, will resume IV fluids at that time -IV Dilaudid 1 mg every 2 hours prn pain -PO Hydrocodone 2 tabs po every 4 hours as needed for pain control -continuos pulse ox -Pressure reducing mattress and position of comfort for hip fracture -Orthopedic surgery consult Dr. Lazcano HYPERTENSION -order home medications HYPOTHYROIDISM -Levothyroxine daily OSTEOPOROSIS- reports first hip fracture at age 52 years. Has had chronic joint/ bone pain. 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 -She has had chemotherapy for 3 months. Annual follow up at [facility]- next due January 2020. Maintenance issues -Orders home meds- reviewed -Nutrition: Regular diet, NPO after midnight on Sunday night. -Torres catheter- placed in ER for right hip fracture and strict I&O -DVT: SCD, heparin 5000 units subcu every 12 hours, discontinued tonight. Plan to resume DVT prophylaxis Sunday morning after surgery with Lovenox -PPI; Protonix 40mg daily CODE STATUS: FULL Admission status: Admit to [address] [place] [address] Admission justification. This patient will be admitted for inpatient services and is medically appropriate meeting medical necessity for inpatient admission as outlined in my documentation. I reasonably expect the patient will require inpatient services that span. Time over 2 midnights. I reasonably expect this patient to be discharged or transferred within 96 hours after admission to the critical access hospital. Disposition: home versus [facility] Primary care provider: Dr. Power, [facility] and [facility] Urology Hospitalist: Dr. Potts
[2019-12-21] MEDS: Heparin Sodium 5,000 Units/ML Vial SUBCUT SCH ×2 (10:09→21:08)
--- NOTE | 2019-12-21 15:42 | CRLCR ---
INDICATION: fall, pain HISTORY: Pain after fall. COMPARISON: None. TECHNIQUE: AP radiograph of the pelvis, 2 views of the right hip. FINDINGS: There is an acute, extra capsular, intertrochanteric fracture of the right proximal femur, with displacement of the lesser trochanter. No underlying bone lesion is identified. The symphysis pubis and superior/inferior pubic rami are intact. Left hip arthroplasty. Heterotopic bone adjacent to the left proximal femur. Arcuate lines in the sacrum are obscured secondary to bowel gas. Pelvic phleboliths are present. There is no soft tissue mass by plain film. IMPRESSION: There is an acute, extra capsular, intertrochanteric fracture of the right proximal femur. Dictated by Giovanni German MD @ 12/21/2019 3:40:06 PM Dictated by: Giovanni German MD @ 12/21/2019 15:40:10 (Electronically Signed)
--- NOTE | 2019-12-21 15:42 | CRLCR ---
INDICATION: fall HISTORY: Fall. COMPARISON: None. TECHNIQUE: Chest one-view. FINDINGS: playground monitor leads overlie the patient. The heart size and pulmonary vasculature are within normal limits. Lungs and pleural spaces are clear. There is no pneumothorax. There is no mediastinal widening. Lateral costophrenic sulci are sharp. IMPRESSION: The lungs are clear. Dictated by Giovanni German MD @ 12/21/2019 3:41:18 PM Dictated by: Giovanni German MD @ 12/21/2019 15:41:27 (Electronically Signed)
[2019-12-21] MEDS: Metoprolol Succinate 25 MG Tab.ER PO SCH (21:09)
[2019-12-21] MEDS: Losartan 25 MG Tab PO SCH (21:09)
[2019-12-22] MEDS: Acetaminophen/HYDROcodone 325-5 MG Tab PO PRN ×2 (02:51→15:47)
[2019-12-22] MEDS: HYDROmorphone 1 MG/ML Syringe IVPUSH PRN ×8 (02:51→22:48)
[2019-12-22] MEDS: Pantoprazole 40 MG Tab.CR PO SCH (06:59)
[2019-12-22] MEDS: Levothyroxine 100 MCG Tab PO SCH (06:59)
[2019-12-22] MEDS ORDERED: Bupivacaine 0.5% 30 ML SDV ONE (07:09)
[2019-12-22] MEDS: Sodium Chloride 0.9% 1,000 ML IV SCH ×2 (09:20→17:14)
--- NOTE | 2019-12-22 10:11 | PCM.PN ---
- General Info Date of Service: 12/22/19 Subjective Update: No acute events overnight. Vital signs have been stable. Pain is well controlled as long as she is sitting still. Pain is more intense when she moves around. No complaints of shortness of breath or nausea. Surgery is planned for later in the morning. Functional Status: Reports: Pain Controlled - Review of Systems General: Denies: Fever - Patient Data Vitals - Most Recent: Last Vital Signs Temp 36.8 C 12/22/19 07:10 Pulse 78 12/22/19 07:10 Resp 16 12/22/19 07:10 BP 180/66 H 12/22/19 07:10 Pulse Ox 96 12/22/19 07:14 Weight - Most Recent: 79.832 kg I&O - Last 24 Hours: Intake & Output 12/21/19 12/22/19 12/22/19 22:59 06:59 14:59 Intake Total 740 802 Output Total 1200 600 Balance -460 202 Lab Results Last 24 Hours: Laboratory Results - last 24 hr 12/22/19 12/22/19 Range/Units 05:00 05:00 WBC 16.8 H (4.5-11.0) K/uL RBC 3.76 (3.30-5.50) M/uL Hgb 10.7 L (12.0-15.0) g/dL Hct 34.6 L (36.0-48.0) % MCV 92 (80-98) fL MCH 29 (27-31) pg MCHC 31 L (32-36) % Plt Count 299 (150-400) K/uL Neut % (Auto) 72 H (36-66) % Lymph % (Auto) 14 L (24-44) % [place] % (Auto) 12 H (2-6) % Eos % (Auto) 1 L (2-4) % Baso % (Auto) 0 (0-1) % Sodium 134 L (140-148) mmol/L Potassium 3.6 (3.6-5.2) mmol/L Chloride 99 L (100-108) mmol/L Carbon Dioxide 28 (21-32) mmol/L Anion Gap 10.6 (5.0-14.0) mmol/L BUN 8 (7-18) mg/dL Creatinine 0.8 (0.6-1.0) mg/dL Est Cr Clr Drug Dosing 54.69 mL/min Estimated GFR (MDRD) > 60 (>60) Glucose 116 H (74-106) mg/dL Calcium 8.0 L (8.5-10.1) mg/dL Med Orders - Current: Current Medications Acetaminophen (Tylenol) 650 mg PO Q4H PRN PRN Reason: Pain (Mild 1-3)/fever Hydrocodone Bitart/Acetaminophen ([place] 325-5 Mg) 2 tab PO Q4H PRN PRN Reason: Pain (moderate 4-6) Last Admin: 12/22/19 02:51 Dose: 2 tab Albuterol (Proventil Neb Soln) 2.5 mg NEB Q4H PRN PRN Reason: Shortness Of Breath/wheezing Docusate Sodium (Colace) 100 mg PO BID PRN PRN Reason: Constipation Hydromorphone HCl (Dilaudid) 1 mg IVPUSH Q2H PRN PRN Reason: Pain (severe 7-10) Last Admin: 12/22/19 09:20 Dose: 1 mg Sodium Chloride (Normal Saline) 1,000 mls @ 125 mls/hr IV [facility]RECTED [facility] Last Admin: 12/22/19 09:20 Dose: 125 mls/hr Levothyroxine Sodium (Synthroid) 100 mcg PO DAILY@0730 [facility] Last Admin: 12/22/19 06:59 Dose: 100 mcg Losartan Potassium (Cozaar) 12.5 mg PO BEDTIME [facility] Last Admin: 12/21/19 21:09 Dose: 12.5 mg Melatonin (Melatonin) 6 mg PO BEDTIME PRN PRN Reason: Insomnia Metoprolol Succinate (Toprol Xl) 25 mg PO BEDTIME [facility] Last Admin: 12/21/19 21:09 Dose: 25 mg Ondansetron HCl (Zofran Odt) 4 mg PO Q6H PRN PRN Reason: Nausea able to take PO Ondansetron HCl (Zofran) 4 mg IV Q4H PRN PRN Reason: Nausea/Vomiting Pantoprazole Sodium (Protonix) 40 mg PO DAILY@0730 [facility] Last Admin: 12/22/19 06:59 Dose: 40 mg Discontinued Medications Bupivacaine HCl ([place] 0.5%) Confirm Administered Dose 30 ml .ROUTE .STK-MED ONE Stop: 12/22/19 07:10 Heparin Sodium (Porcine) (Heparin Sodium) 5,000 units SUBCUT Q12H [facility] Stop: 12/21/19 20:31 Last Admin: 12/21/19 21:08 Dose: 5,000 units Hydromorphone HCl (Dilaudid) 0.5 mg IVPUSH Q1H PRN PRN Reason: Pain (moderate 4-6) Last Admin: 12/20/19 16:58 Dose: 0.5 mg Hydromorphone HCl (Dilaudid) 1 mg IVPUSH ONETIME ONE Stop: 12/20/19 19:03 Last Admin: 12/20/19 19:10 Dose: 1 mg Sodium Chloride (Normal Saline) 1,000 mls @ 500 mls/hr IV ASDIRECTED [facility] Last Admin: 12/20/19 17:00 Dose: 500 mls/hr Sodium Chloride (Normal Saline) 1,000 mls @ 125 mls/hr IV ASDIRECTED [facility] Last Admin: 12/21/19 04:01 Dose: 125 mls/hr Ondansetron HCl (Zofran) 4 mg IVPUSH ONETIME ONE Stop: 12/20/19 19:03 Last Admin: 12/20/19 23:42 Dose: Not Given - Exam Quality Assessment: Supplemental Oxygen General: Alert, Oriented, Cooperative, No Acute Distress Lungs: Normal Respiratory Effort GI/Abdominal Exam: Soft, No Distention Extremities: No Pedal Edema Skin: Warm, Dry Psy/Mental Status: Alert, Normal Affect Sepsis Event Note - Evaluation Sepsis Screening Result: No Definite Risk - Focused Exam Vital Signs: Vital Signs Temp Pulse Resp BP Pulse Ox 12/22/19 07:14 96 12/22/19 07:10 36.8 C 78 16 180/66 H 97 12/22/19 02:56 36.3 C 88 16 167/73 H 99 12/22/19 01:58 98 12/21/19 23:34 36.6 C 78 18 155/69 H 100 Date Exam was Performed: 12/22/19 Time Exam was Performed: 10:46 - Problem List Review Problem List Initiated/Reviewed/Updated: Yes - My Orders Last 24 Hours: My Active Orders 12/23/19 05:00 BASIC METABOLIC PANEL,BMP [CHEM] Timed CBC W/O DIFF,HEMOGRAM [HEME] Timed (1) - Plan Plan:: ASSESSMENT / PLAN RIGHT INTERTROCHANTERIC HIP FRACTURE-secondary to fall. Surgery planned later this morning. Vital signs have been stable. -Continue gentle IV fluids -Pain control -Pressure reducing mattress and position of comfort for hip fracture -Orthopedic surgery consult with Dr. Lazcano HYPERTENSION-vital signs stable. -Continue home medications HYPOTHYROIDISM -Levothyroxine daily OSTEOPOROSIS- reports first hip fracture at age 52 years. Has had chronic joint/ bone pain. 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 -She has had chemotherapy for 3 months. Annual follow up at [facility]- next due January 2020. Maintenance issues -Nutrition: Nothing by mouth until after surgery -Torres catheter- placed in ER for right hip fracture and strict I&O -DVT: SCD -GI; Protonix 40mg daily Disposition: I would anticipate discharge home with home care after the hospital stay Primary care provider: Dr. Power, [facility] and [facility] Urology Shoaib Zhang MD
[2019-12-22] MEDS ORDERED: Sodium Chloride 0.9% 500 ML IV ONE (12:11)
[2019-12-22] MEDS: ceFAZolin 2 GM in Premix Bag 1 BAG IV ONE ×2 (12:16→13:20)
[2019-12-22] MEDS ORDERED: Propofol 200 MG/20 ML SDV ONE (12:34)
[2019-12-22] MEDS ORDERED: Midazolam 1 MG/ML 2 ML SDV ONE ×2 (12:34→13:31)
[2019-12-22] MEDS ORDERED: fentaNYL 100 MCG/2 ML SDV ONE (12:34)
[2019-12-22] MEDS ORDERED: Phenylephrine 1% 10 MG/ML SDV ONE (13:08)
[2019-12-22] MEDS: Acetaminophen/oxyCODONE 325-5 MG Tab PO PRN (19:49)
[2019-12-22] MEDS: ceFAZolin 1 GM in Premix Bag 1 BAG IV SCH (19:50)
[2019-12-22] MEDS: Losartan 25 MG Tab PO SCH (21:05)
[2019-12-22] MEDS: Metoprolol Succinate 25 MG Tab.ER PO SCH (21:05)
[2019-12-22] MEDS: Melatonin 3 MG Tab PO PRN (22:48)
[2019-12-22] MEDS: Nozin Nasal Sanitizer NASBOTH SCH (22:48)
[2019-12-23] MEDS: Acetaminophen/oxyCODONE 325-5 MG Tab PO PRN ×5 (00:28→19:46)
[2019-12-23] MEDS: Sodium Chloride 0.9% 1,000 ML IV SCH (01:54)
[2019-12-23] MEDS: ceFAZolin 1 GM in Premix Bag 1 BAG IV SCH ×2 (03:43→11:51)
[2019-12-23] MEDS ORDERED: Sodium Chloride 0.9% 500 ML IV ONE (06:08)
[2019-12-23] MEDS: Enoxaparin 40 MG/0.4 ML Syringe SUBCUT SCH (08:36)
[2019-12-23] MEDS: Levothyroxine 100 MCG Tab PO SCH (08:36)
[2019-12-23] MEDS: Pantoprazole 40 MG Tab.CR PO SCH (08:36)
[2019-12-23] MEDS: Nozin Nasal Sanitizer NASBOTH SCH ×2 (08:37→20:56)
[2019-12-23] MEDS ORDERED: Levothyroxine 100 MCG Tab PO SCH (09:00)
[2019-12-23] MEDS ORDERED: Potassium Chloride 20 MEQ Tab.ER PO ONE ×2 (09:00→12:00)
--- NOTE | 2019-12-23 11:04 | PCM.PN ---
- General Info Date of Service: 12/23/19 Subjective Update: She did have some low urine output last night which did respond to an IV fluid challenge. Vital signs have been stable. Pain is minimal at rest but moderate with activity. She was able to stand and pivot but not able to walk so far. No complaints of shortness of breath or nausea. No confusion. Hemoglobin down slightly to just above 9 this morning. Functional Status: Reports: Pain Controlled, Tolerating Diet - Review of Systems General: Reports: Weakness Musculoskeletal: Reports: Leg Pain (right hip ) - Patient Data Vitals - Most Recent: Last Vital Signs Temp 37.2 C 12/23/19 07:21 Pulse 99 12/23/19 07:21 Resp 16 12/23/19 07:21 BP 135/53 L 12/23/19 07:21 Pulse Ox 98 12/23/19 07:21 Weight - Most Recent: 79.832 kg I&O - Last 24 Hours: Intake & Output 12/22/19 12/23/19 12/23/19 22:59 06:59 14:59 Intake Total 1550 2026 Output Total 1000 225 Balance 550 1801 Lab Results Last 24 Hours: Laboratory Results - last 24 hr 12/23/19 12/23/19 Range/Units 05:30 05:30 WBC 16.5 H (4.5-11.0) K/uL RBC 3.10 L (3.30-5.50) M/uL Hgb 9.1 L (12.0-15.0) g/dL Hct 28.5 L (36.0-48.0) % MCV 92 (80-98) fL MCH 29 (27-31) pg MCHC 32 (32-36) % Plt Count 237 (150-400) K/uL Sodium 134 L (140-148) mmol/L Potassium 3.5 L (3.6-5.2) mmol/L Chloride 101 (100-108) mmol/L Carbon Dioxide 24 (21-32) mmol/L Anion Gap 12.5 (5.0-14.0) mmol/L BUN 9 (7-18) mg/dL Creatinine 0.8 (0.6-1.0) mg/dL Est Cr Clr Drug Dosing 54.69 mL/min Estimated GFR (MDRD) > 60 (>60) Glucose 103 (74-106) mg/dL Calcium 7.4 L (8.5-10.1) mg/dL Med Orders - Current: Current Medications Acetaminophen (Tylenol) 650 mg PO Q4H PRN PRN Reason: Pain (Mild 1-3)/fever Hydrocodone Bitart/Acetaminophen ([place] 325-5 Mg) 2 tab PO Q4H PRN PRN Reason: Pain (moderate 4-6) Last Admin: 12/22/19 15:47 Dose: 2 tab Albuterol (Proventil Neb Soln) 2.5 mg NEB Q4H PRN PRN Reason: Shortness Of Breath/wheezing Bandage/Support Products ( Nasal [employer]) 1 applic NASBOTH BID [facility] Stop: 12/29/19 21:01 Last Admin: 12/23/19 08:37 Dose: 1 applic Docusate Sodium (Colace) 100 mg PO BID PRN PRN Reason: Constipation Enoxaparin Sodium (Lovenox) 40 mg SUBCUT DAILY [facility] Last Admin: 12/23/19 08:36 Dose: 40 mg Hydromorphone HCl (Dilaudid) 1 mg IVPUSH Q2H PRN PRN Reason: Pain (severe 7-10) Last Admin: 12/22/19 22:48 Dose: 1 mg Sodium Chloride (Normal Saline) 1,000 mls @ 125 mls/hr IV ASDIRECTED [facility] Last Admin: 12/23/19 01:54 Dose: 125 mls/hr Cefazolin Sodium/Dextrose 1 gm (/ Premix) 50 mls @ 100 mls/hr IV Q8H [facility] Stop: 12/23/19 12:29 Last Admin: 12/23/19 03:43 Dose: 100 mls/hr Levothyroxine Sodium (Synthroid) 100 mcg PO DAILY@0730 [facility] Last Admin: 12/23/19 08:36 Dose: 100 mcg Losartan Potassium (Cozaar) 12.5 mg PO BEDTIME [facility] Last Admin: 12/22/19 21:05 Dose: 12.5 mg Melatonin (Melatonin) 6 mg PO BEDTIME PRN PRN Reason: Insomnia Last Admin: 12/22/19 22:48 Dose: 6 mg Metoprolol Succinate (Toprol Xl) 25 mg PO BEDTIME [facility] Last Admin: 12/22/19 21:05 Dose: 25 mg Ondansetron HCl (Zofran Odt) 4 mg PO Q6H PRN PRN Reason: Nausea able to take PO Ondansetron HCl (Zofran) 4 mg IV Q4H PRN PRN Reason: Nausea/Vomiting Last Admin: 12/22/19 15:17 Dose: 4 mg Oxycodone/Acetaminophen (Percocet 325-5 Mg) 1 - 2 tab PO Q4H PRN PRN Reason: Pain (moderate 4-6) Last Admin: 12/23/19 07:21 Dose: 2 tab Pantoprazole Sodium (Protonix) 40 mg PO DAILY@0730 [facility] Last Admin: 12/23/19 08:36 Dose: 40 mg Discontinued Medications Bupivacaine HCl (Marcaine 0.5%) Confirm Administered Dose 30 ml .ROUTE .STK-MED ONE Stop: 12/22/19 07:10 Last Admin: 12/22/19 14:13 Dose: 20 ml Fentanyl (Sublimaze) Confirm Administered Dose 100 mcg .ROUTE .STK-MED ONE Stop: 12/22/19 12:35 Heparin Sodium (Porcine) (Heparin Sodium) 5,000 units SUBCUT Q12H [facility] Stop: 12/21/19 20:31 Last Admin: 12/21/19 21:08 Dose: 5,000 units Hydromorphone HCl (Dilaudid) 0.5 mg IVPUSH Q1H PRN PRN Reason: Pain (moderate 4-6) Last Admin: 12/20/19 16:58 Dose: 0.5 mg Hydromorphone HCl (Dilaudid) 1 mg IVPUSH ONETIME ONE Stop: 12/20/19 19:03 Last Admin: 12/20/19 19:10 Dose: 1 mg Sodium Chloride (Normal Saline) 1,000 mls @ 500 mls/hr IV ASDIRECTED [facility] Last Admin: 12/20/19 17:00 Dose: 500 mls/hr Sodium Chloride (Normal Saline) 1,000 mls @ 125 mls/hr IV ASDIRECTED [facility] Last Admin: 12/21/19 04:01 Dose: 125 mls/hr Cefazolin Sodium/Dextrose 2 gm (/ Premix) 50 mls @ 100 mls/hr IV ONCALL ONE Stop: 12/22/19 11:29 Last Admin: 12/22/19 13:20 Dose: 100 mls/hr Sodium Chloride (Normal Saline) 500 mls @ 999 mls/hr IV .BOLUS ONE Stop: 12/22/19 12:41 Last Admin: 12/22/19 12:26 Dose: 999 mls/hr Sodium Chloride (Normal Saline) 500 mls @ 500 mls/hr IV .BOLUS ONE Stop: 12/23/19 07:07 Last Admin: 12/23/19 06:44 Dose: 500 mls/hr Midazolam HCl (Versed 1 Mg/Ml) Confirm Administered Dose 2 mg .ROUTE .STK-MED ONE Stop: 12/22/19 12:35 Midazolam HCl (Versed 1 Mg/Ml) Confirm Administered Dose 2 mg .ROUTE .STK-MED ONE Stop: 12/22/19 13:32 Ondansetron HCl (Zofran) 4 mg IVPUSH ONETIME ONE Stop: 12/20/19 19:03 Last Admin: 12/20/19 23:42 Dose: Not Given Phenylephrine HCl (Collin-Synephrine) Confirm Administered Dose 10 mg .ROUTE .STK- MED ONE Stop: 12/22/19 13:09 Potassium Chloride (Klor-Con M20) 40 meq PO ONETIME ONE Stop: 12/23/19 09:01 Propofol (Diprivan 20 Ml) Confirm Administered Dose 200 mg .ROUTE .STK-MED ONE Stop: 12/22/19 12:35 - Exam Quality Assessment: Supplemental Oxygen General: Alert, Oriented, Cooperative, No Acute Distress Lungs: Normal Respiratory Effort Cardiovascular: Regular Rate, Regular Rhythm GI/Abdominal Exam: Soft, No Distention Extremities: No Pedal Edema. No: Increased Warmth Skin: Warm, Dry Wound/Incisions: Dressing Dry and Intact Psy/Mental Status: Alert, Normal Affect Sepsis Event Note - Evaluation Sepsis Screening Result: Sepsis Risk - Focused Exam Vital Signs: Vital Signs Temp Pulse Resp BP Pulse Ox 12/23/19 07:21 37.2 C 99 16 135/53 L 98 12/23/19 03:02 37.0 C 104 H 16 136/53 L 91 L Date Exam was Performed: 12/23/19 Time Exam was Performed: 13:38 - Problem List Review Problem List Initiated/Reviewed/Updated: Yes - My Orders Last 24 Hours: My Active Orders 12/23/19 11:03 Convert IV to Saline Lock [OM.PC] Routine 12/24/19 05:00 BASIC METABOLIC PANEL,BMP [CHEM] Timed CBC W/O DIFF,HEMOGRAM [HEME] Timed (1) - Plan Plan:: ASSESSMENT / PLAN RIGHT INTERTROCHANTERIC HIP FRACTURE-secondary to fall. Surgery intervention with ORIF on 12/21. Pain fairly well controlled but not moving very well so far. -Saline lock IV -Physical therapy -Pain control -Pressure reducing mattress and position of comfort for hip fracture -Orthopedic follow-up per Dr Ajay Lazcano HYPERTENSION-vital signs stable. -Continue home medications HYPOTHYROIDISM -Levothyroxine daily OSTEOPOROSIS- reports first hip fracture at age 52 years. Has had chronic joint/ bone pain. 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 -She has had chemotherapy for 3 months. Annual follow up at [facility]- next due January 2020. Maintenance issues -Nutrition: Regular diet -Torres catheter- placed in ER for right hip fracture and strict I&O, plan to leave in place for 1 more day with low urine output -DVT: SCD -GI; Protonix 40mg daily Disposition: I would anticipate discharge home with home care versus possibly subacute rehab after the hospital stay Primary care provider: Dr. Power, [facility] Shoaib Zhang MD
[2019-12-23] MEDS: Acetaminophen/HYDROcodone 325-5 MG Tab PO PRN ×2 (13:46→22:41)
--- NOTE | 2019-12-23 14:59 | PCM.SURGPN ---
- General Info Date of Service: 12/23/19 Date of Surgery/Procedure: 12/22/19 POD#: 1 Post-Op Diagnosis: Peritrochanteric fracture right hip Functional Status: Reports: Pain Controlled, Tolerating Diet - Review of Systems General: Reports: No Symptoms Musculoskeletal: Reports: Leg Pain Neurological: Reports: No Symptoms Psychiatric: Reports: No Symptoms - Patient Data Vitals - Most Recent: Last Vital Signs Temp 37.4 C 12/23/19 11:26 Pulse 84 12/23/19 11:26 Resp 16 12/23/19 11:26 BP 108/43 L 12/23/19 11:26 Pulse Ox 94 L 12/23/19 11:26 Weight - Most Recent: 79.832 kg I&O - Last 24 Hours: Intake & Output 12/22/19 12/23/19 12/23/19 22:59 06:59 14:59 Intake Total 1550 2026 240 Output Total 1000 225 Balance 550 1801 240 Lab Results Last 24 Hrs: Laboratory Results - last 24 hr 12/23/19 12/23/19 Range/Units 05:30 05:30 WBC 16.5 H (4.5-11.0) K/uL RBC 3.10 L (3.30-5.50) M/uL Hgb 9.1 L (12.0-15.0) g/dL Hct 28.5 L (36.0-48.0) % MCV 92 (80-98) fL MCH 29 (27-31) pg MCHC 32 (32-36) % Plt Count 237 (150-400) K/uL Sodium 134 L (140-148) mmol/L Potassium 3.5 L (3.6-5.2) mmol/L Chloride 101 (100-108) mmol/L Carbon Dioxide 24 (21-32) mmol/L Anion Gap 12.5 (5.0-14.0) mmol/L BUN 9 (7-18) mg/dL Creatinine 0.8 (0.6-1.0) mg/dL Est Cr Clr Drug Dosing 54.69 mL/min Estimated GFR (MDRD) > 60 (>60) Glucose 103 (74-106) mg/dL Calcium 7.4 L (8.5-10.1) mg/dL Med Orders - Current: Current Medications Acetaminophen (Tylenol) 650 mg PO Q4H PRN PRN Reason: Pain (Mild 1-3)/fever Hydrocodone Bitart/Acetaminophen ([place] 325-5 Mg) 2 tab PO Q4H PRN PRN Reason: Pain (moderate 4-6) Last Admin: 12/23/19 13:46 Dose: 1 tab Albuterol (Proventil Neb Soln) 2.5 mg NEB Q4H PRN PRN Reason: Shortness Of Breath/wheezing Bandage/Support Products ( Nasal Kerfer Machine Operator) 1 applic NASBOTH BID [facility] Stop: 12/29/19 21:01 Last Admin: 12/23/19 08:37 Dose: 1 applic Docusate Sodium (Colace) 100 mg PO BID PRN PRN Reason: Constipation Enoxaparin Sodium (Lovenox) 40 mg SUBCUT DAILY [facility] Last Admin: 12/23/19 08:36 Dose: 40 mg Hydromorphone HCl (Dilaudid) 1 mg IVPUSH Q2H PRN PRN Reason: Pain (severe 7-10) Last Admin: 12/22/19 22:48 Dose: 1 mg Levothyroxine Sodium (Synthroid) 100 mcg PO DAILY@729 [facility] Last Admin: 12/23/19 08:36 Dose: 100 mcg Losartan Potassium (Cozaar) 12.5 mg PO BEDTIME [facility] Last Admin: 12/22/19 21:05 Dose: 12.5 mg Melatonin (Melatonin) 6 mg PO BEDTIME PRN PRN Reason: Insomnia Last Admin: 12/22/19 22:48 Dose: 6 mg Metoprolol Succinate (Toprol Xl) 25 mg PO BEDTIME [facility] Last Admin: 12/22/19 21:05 Dose: 25 mg Ondansetron HCl (Zofran Odt) 4 mg PO Q6H PRN PRN Reason: Nausea able to take PO Ondansetron HCl (Zofran) 4 mg IV Q4H PRN PRN Reason: Nausea/Vomiting Last Admin: 12/22/19 15:17 Dose: 4 mg Oxycodone/Acetaminophen (Percocet 325-5 Mg) 1 - 2 tab PO Q4H PRN PRN Reason: Pain (moderate 4-6) Last Admin: 12/23/19 11:50 Dose: 2 tab Pantoprazole Sodium (Protonix) 40 mg PO DAILY@0730 [facility] Last Admin: 12/23/19 08:36 Dose: 40 mg Discontinued Medications Bupivacaine HCl (Marcaine 0.5%) Confirm Administered Dose 30 ml .ROUTE .STK-MED ONE Stop: 12/22/19 07:10 Last Admin: 12/22/19 14:13 Dose: 20 ml Fentanyl (Sublimaze) Confirm Administered Dose 100 mcg .ROUTE .STK-MED ONE Stop: 12/22/19 12:35 Heparin Sodium (Porcine) (Heparin Sodium) 5,000 units SUBCUT Q12H [facility] Stop: 12/21/19 20:31 Last Admin: 12/21/19 21:08 Dose: 5,000 units Hydromorphone HCl (Dilaudid) 0.5 mg IVPUSH Q1H PRN PRN Reason: Pain (moderate 4-6) Last Admin: 12/20/19 16:58 Dose: 0.5 mg Hydromorphone HCl (Dilaudid) 1 mg IVPUSH ONETIME ONE Stop: 12/20/19 19:03 Last Admin: 12/20/19 19:10 Dose: 1 mg Sodium Chloride (Normal Saline) 1,000 mls @ 500 mls/hr IV ASDIRECTED [facility] Last Admin: 12/20/19 17:00 Dose: 500 mls/hr Sodium Chloride (Normal Saline) 1,000 mls @ 125 mls/hr IV ASDIRECTED [facility] Last Admin: 12/21/19 04:01 Dose: 125 mls/hr Sodium Chloride (Normal Saline) 1,000 mls @ 125 mls/hr IV ASDIRECTED [facility] Last Admin: 12/23/19 01:54 Dose: 125 mls/hr Cefazolin Sodium/Dextrose 2 gm (/ Premix) 50 mls @ 100 mls/hr IV ONCALL ONE Stop: 12/22/19 11:29 Last Admin: 12/22/19 13:20 Dose: 100 mls/hr Sodium Chloride (Normal Saline) 500 mls @ 999 mls/hr IV .BOLUS ONE Stop: 12/22/19 12:41 Last Admin: 12/22/19 12:26 Dose: 999 mls/hr Cefazolin Sodium/Dextrose 1 gm (/ Premix) 50 mls @ 100 mls/hr IV Q8H [facility] Stop: 12/23/19 12:29 Last Admin: 12/23/19 11:51 Dose: 100 mls/hr Sodium Chloride (Normal Saline) 500 mls @ 500 mls/hr IV .BOLUS ONE Stop: 12/23/19 07:07 Last Admin: 12/23/19 06:44 Dose: 500 mls/hr Midazolam HCl (Versed 1 Mg/Ml) Confirm Administered Dose 2 mg .ROUTE .STK-MED ONE Stop: 12/22/19 12:35 Midazolam HCl (Versed 1 Mg/Ml) Confirm Administered Dose 2 mg .ROUTE .STK-MED ONE Stop: 12/22/19 13:32 Ondansetron HCl (Zofran) 4 mg IVPUSH ONETIME ONE Stop: 12/20/19 19:03 Last Admin: 12/20/19 23:42 Dose: Not Given Phenylephrine HCl (Collin-Synephrine) Confirm Administered Dose 10 mg .ROUTE .STK- MED ONE Stop: 12/22/19 13:09 Potassium Chloride (Klor-Con M20) 40 meq PO ONETIME ONE Stop: 12/23/19 12:01 Last Admin: 12/23/19 11:51 Dose: 40 meq Propofol (Diprivan 20 Ml) Confirm Administered Dose 200 mg .ROUTE .STK-MED ONE Stop: 12/22/19 12:35 - Exam Wound/Incisions: Drainage (mild bloody drainage from distal incison post op yesterday) General: Alert, Oriented Extremities: Limited Range of Motion, Other (mild distal edema ) Skin: Warm, Dry Neurological: No New Focal Deficit Psy/Mental Status: Alert, Normal Affect Sepsis Event Note - Evaluation Sepsis Screening Result: Sepsis Risk - Focused Exam Vital Signs: Vital Signs Temp Temp Pulse Resp BP Pulse Ox 12/23/19 11:26 37.4 C 84 16 108/43 L 94 L 12/23/19 07:21 37.2 C 99 16 135/53 L 98 12/23/19 03:02 37.0 C 104 H 16 136/53 L 91 L Date Exam was Performed: 12/23/19 Time Exam was Performed: 14:53 - Problem List & Annotations (1) Acute postoperative anemia due to expected blood loss SNOMED Code(s): 70294435678331605 Code(s): D62 - ACUTE POSTHEMORRHAGIC ANEMIA Status: Acute Current Visit: Yes (2) Intertrochanteric fracture, hip SNOMED Code(s): 938365116 Code(s): S72.143A - DISPLACED INTERTROCHANTERIC FRACTURE OF UNSP FEMUR, INIT Status: Acute Priority: High Current Visit: Yes Onset Date: ~12/20/19 (3) Status post open reduction and internal fixation (ORIF) of fracture SNOMED Code(s): 191241131 Code(s): Z98.890 - OTHER SPECIFIED POSTPROCEDURAL STATES; Z87.81 - PERSONAL HISTORY OF (HEALED) TRAUMATIC FRACTURE Status: Acute Current Visit: Yes Annotation/Comment:: Right hip with IM nail/marquita - Problem List Review Problem List Initiated/Reviewed/Updated: Yes - My Orders Last 24 Hours: Active Orders 24 hr Category Date Time Status Dietary Supplements [RC] BIDMEALS Care 12/22/19 14:32 Active Regular Diet [DIET] Diet 12/22/19 Dinner Active BASIC METABOLIC PANEL,BMP [CHEM] Timed Lab 12/24/19 05:00 Ordered CBC W/O DIFF,HEMOGRAM [HEME] Timed (1) Lab 12/24/19 05:00 Ordered Acetaminophen/oxyCODONE [Percocet 325-5 MG] Med 12/22/19 14:30 Active 1 - 2 tab PO Q4H PRN Enoxaparin [Lovenox] Med 12/23/19 09:00 Active 40 mg SUBCUT DAILY [facility] [ Nasal Kerfer Machine Operator] Med 12/22/19 21:00 Active 1 applic NASBOTH BID Convert IV to Saline Lock [OM.PC] Routine Oth 12/23/19 11:03 Ordered Medication Orders Acetaminophen (Tylenol) 650 mg PO Q4H PRN PRN Reason: Pain (Mild 1-3)/fever Hydrocodone Bitart/Acetaminophen ([place] 325-5 Mg) 2 tab PO Q4H PRN PRN Reason: Pain (moderate 4-6) Last Admin: 12/23/19 13:46 Dose: 1 tab Admin: 12/22/19 15:47 Dose: 2 tab Admin: 12/22/19 02:51 Dose: 2 tab Admin: 12/21/19 22:18 Dose: 2 tab Admin: 12/21/19 18:14 Dose: 2 tab Admin: 12/21/19 14:20 Dose: 2 tab Admin: 12/21/19 10:16 Dose: 2 tab Admin: 12/21/19 06:15 Dose: 2 tab Admin: 12/21/19 01:46 Dose: 2 tab Admin: 12/20/19 20:30 Dose: 2 tab Albuterol (Proventil Neb Soln) 2.5 mg NEB Q4H PRN PRN Reason: Shortness Of Breath/wheezing Bandage/Support Products ( Nasal Kerfer Machine Operator) 1 applic NASBOTH BID [facility] Stop: 12/29/19 21:01 Last Admin: 12/23/19 08:37 Dose: 1 applic Admin: 12/22/19 22:48 Dose: 1 applic Docusate Sodium (Colace) 100 mg PO BID PRN PRN Reason: Constipation Enoxaparin Sodium (Lovenox) 40 mg SUBCUT DAILY [facility] Last Admin: 12/23/19 08:36 Dose: 40 mg Hydromorphone HCl (Dilaudid) 1 mg IVPUSH Q2H PRN PRN Reason: Pain (severe 7-10) Last Admin: 12/22/19 22:48 Dose: 1 mg Admin: 12/22/19 17:46 Dose: 1 mg Admin: 12/22/19 15:14 Dose: 1 mg Admin: 12/22/19 12:00 Dose: 1 mg Admin: 12/22/19 09:20 Dose: 1 mg Admin: 12/22/19 07:02 Dose: 1 mg Admin: 12/22/19 05:05 Dose: 1 mg Admin: 12/22/19 02:51 Dose: 1 mg Admin: 12/21/19 23:33 Dose: 1 mg Admin: 12/21/19 21:06 Dose: 1 mg Admin: 12/21/19 17:12 Dose: 1 mg Admin: 12/21/19 08:11 Dose: 1 mg Admin: 12/21/19 04:01 Dose: 1 mg Admin: 12/20/19 23:45 Dose: 1 mg Admin: 12/20/19 21:24 Dose: 1 mg Levothyroxine Sodium (Synthroid) 100 mcg PO DAILY@0730 [facility] Last Admin: 12/23/19 08:36 Dose: 100 mcg Admin: 12/22/19 06:59 Dose: 100 mcg Admin: 12/21/19 08:10 Dose: 100 mcg Losartan Potassium (Cozaar) 12.5 mg PO BEDTIME [facility] Last Admin: 12/22/19 21:05 Dose: 12.5 mg Admin: 12/21/19 21:09 Dose: 12.5 mg Admin: 12/20/19 20:32 Dose: 12.5 mg Melatonin (Melatonin) 6 mg PO BEDTIME PRN PRN Reason: Insomnia Last Admin: 12/22/19 22:48 Dose: 6 mg Metoprolol Succinate (Toprol Xl) 25 mg PO BEDTIME [facility] Last Admin: 12/22/19 21:05 Dose: 25 mg Admin: 12/21/19 21:09 Dose: 25 mg Admin: 12/20/19 20:32 Dose: 25 mg Ondansetron HCl (Zofran Odt) 4 mg PO Q6H PRN PRN Reason: Nausea able to take PO Ondansetron HCl (Zofran) 4 mg IV Q4H PRN PRN Reason: Nausea/Vomiting Last Admin: 12/22/19 15:17 Dose: 4 mg Oxycodone/Acetaminophen (Percocet 325-5 Mg) 1 - 2 tab PO Q4H PRN PRN Reason: Pain (moderate 4-6) Last Admin: 12/23/19 11:50 Dose: 2 tab Admin: 12/23/19 07:21 Dose: 2 tab Admin: 12/23/19 00:28 Dose: 2 tab Admin: 12/22/19 19:49 Dose: 2 tab Pantoprazole Sodium (Protonix) 40 mg PO DAILY@0730 [facility] Last Admin: 12/23/19 08:36 Dose: 40 mg Admin: 12/22/19 06:59 Dose: 40 mg Admin: 12/21/19 08:10 Dose: 40 mg - Assessment Assessment (Free Text/Narrative):: No complaints this am, has been up in chair, difficulty with transfers as expected, Hgb 9.1 today and not symptomatic - Plan Plan (Free Text/Narrative):: Continue PT/OT partial weight bearing approx 30% for now, change dressings tomorrow, recommend DVT prophylaxis for 4 weeks
[2019-12-23] MEDS: Melatonin 3 MG Tab PO PRN (20:55)
[2019-12-23] MEDS: Losartan 25 MG Tab PO SCH (20:56)
[2019-12-23] MEDS: Metoprolol Succinate 25 MG Tab.ER PO SCH (20:56)
[2019-12-24] MEDS: Acetaminophen/oxyCODONE 325-5 MG Tab PO PRN ×5 (02:27→20:01)
[2019-12-24] MEDS: Pantoprazole 40 MG Tab.CR PO SCH (07:06)
[2019-12-24] MEDS: Levothyroxine 100 MCG Tab PO SCH (07:07)
[2019-12-24] MEDS: Enoxaparin 40 MG/0.4 ML Syringe SUBCUT SCH (09:09)
[2019-12-24] MEDS: Nozin Nasal Sanitizer NASBOTH SCH ×2 (09:10→20:06)
[2019-12-24] MEDS: Magnesium Hydroxide 400 MG/5 ML Susp 30 ML Cup PO PRN (14:23)
--- NOTE | 2019-12-24 15:14 | PCM.PN ---
- General Info Date of Service: 12/24/19 Subjective Update: No acute events overnight. Pain is fairly well controlled. She continues to be very hesitant to move with concerns that she may fall or that the pain will be severe. When she does move she does okay but moves slowly. No complaints of shortness of breath or nausea. Vital signs have been stable. Urine output has been adequate. Hemoglobin has dropped down to 8.4. - Patient Data Vitals - Most Recent: Last Vital Signs Temp 37.2 C 12/24/19 14:45 Pulse 93 12/24/19 14:45 Resp 18 12/24/19 14:45 BP 117/54 L 12/24/19 14:45 Pulse Ox 99 12/24/19 14:45 Weight - Most Recent: 79.832 kg I&O - Last 24 Hours: Intake & Output 12/24/19 12/24/19 12/24/19 06:59 14:59 22:59 Intake Total 300 200 Output Total 800 Balance -500 200 Lab Results Last 24 Hours: Laboratory Results - last 24 hr 12/20/19 12/24/19 12/24/19 Range/Units 17:10 05:30 05:30 WBC 14.5 H (4.5-11.0) K/uL RBC 2.88 L (3.30-5.50) M/uL Hgb 8.4 L (12.0-15.0) g/dL Hct 26.1 L (36.0-48.0) % MCV 91 (80-98) fL MCH 29 (27-31) pg MCHC 32 (32-36) % Plt Count 241 (150-400) K/uL Sodium 133 L (140-148) mmol/L Potassium 3.8 (3.6-5.2) mmol/L Chloride 102 (100-108) mmol/L Carbon Dioxide 26 (21-32) mmol/L Anion Gap 8.8 (5.0-14.0) mmol/L BUN 11 (7-18) mg/dL Creatinine 0.7 (0.6-1.0) mg/dL Est Cr Clr Drug Dosing 62.50 mL/min Estimated GFR (MDRD) > 60 (>60) Glucose 102 (74-106) mg/dL Calcium 7.8 L (8.5-10.1) mg/dL Myoglobin 59 H (25-58) ng/mL Med Orders - Current: Current Medications Acetaminophen (Tylenol) 650 mg PO Q4H PRN PRN Reason: Pain (Mild 1-3)/fever Albuterol (Proventil Neb Soln) 2.5 mg NEB Q4H PRN PRN Reason: Shortness Of Breath/wheezing Bandage/Support Products ( Nasal Bond Analyst) 1 applic NASBOTH BID [facility] Stop: 12/29/19 21:01 Last Admin: 12/24/19 09:10 Dose: 1 applic Docusate Sodium (Colace) 100 mg PO BID PRN PRN Reason: Constipation Enoxaparin Sodium (Lovenox) 40 mg SUBCUT DAILY [facility] Last Admin: 12/24/19 09:09 Dose: 40 mg Hydromorphone HCl (Dilaudid) 1 mg IVPUSH Q2H PRN PRN Reason: Pain (severe 7-10) Last Admin: 12/22/19 22:48 Dose: 1 mg Levothyroxine Sodium (Synthroid) 100 mcg PO DAILY@0730 [facility] Last Admin: 12/24/19 07:07 Dose: 100 mcg Losartan Potassium (Cozaar) 12.5 mg PO BEDTIME [facility] Last Admin: 12/23/19 20:56 Dose: 12.5 mg Magnesium Hydroxide (Milk Of Magnesia) 30 ml PO BID PRN PRN Reason: Constipation Last Admin: 12/24/19 14:23 Dose: 30 ml Melatonin (Melatonin) 6 mg PO BEDTIME PRN PRN Reason: Insomnia Last Admin: 12/23/19 20:55 Dose: 6 mg Metoprolol Succinate (Toprol Xl) 25 mg PO BEDTIME [facility] Last Admin: 12/23/19 20:56 Dose: 25 mg Ondansetron HCl (Zofran Odt) 4 mg PO Q6H PRN PRN Reason: Nausea able to take PO Ondansetron HCl (Zofran) 4 mg IV Q4H PRN PRN Reason: Nausea/Vomiting Last Admin: 12/22/19 15:17 Dose: 4 mg Oxycodone/Acetaminophen (Percocet 325-5 Mg) 1 - 2 tab PO Q4H PRN PRN Reason: Pain (moderate 4-6) Last Admin: 12/24/19 11:06 Dose: 2 tab Pantoprazole Sodium (Protonix) 40 mg PO DAILY@0730 [facility] Last Admin: 12/24/19 07:06 Dose: 40 mg Discontinued Medications Hydrocodone Bitart/Acetaminophen ([place] 325-5 Mg) 2 tab PO Q4H PRN PRN Reason: Pain (moderate 4-6) Last Admin: 12/23/19 22:41 Dose: 2 tab Bupivacaine HCl (Marcaine 0.5%) Confirm Administered Dose 30 ml .ROUTE .STK-MED ONE Stop: 12/22/19 07:10 Last Admin: 12/22/19 14:13 Dose: 20 ml Fentanyl (Sublimaze) Confirm Administered Dose 100 mcg .ROUTE .STK-MED ONE Stop: 12/22/19 12:35 Heparin Sodium (Porcine) (Heparin Sodium) 5,000 units SUBCUT Q12H [facility] Stop: 12/21/19 20:31 Last Admin: 12/21/19 21:08 Dose: 5,000 units Hydromorphone HCl (Dilaudid) 0.5 mg IVPUSH Q1H PRN PRN Reason: Pain (moderate 4-6) Last Admin: 12/20/19 16:58 Dose: 0.5 mg Hydromorphone HCl (Dilaudid) 1 mg IVPUSH ONETIME ONE Stop: 12/20/19 19:03 Last Admin: 12/20/19 19:10 Dose: 1 mg Sodium Chloride (Normal Saline) 1,000 mls @ 500 mls/[facility] Last Admin: 12/20/19 17:00 Dose: 500 mls/hr Sodium Chloride (Normal Saline) 1,000 mls @ 125 mls/hr IV [facility] Last Admin: 12/21/19 04:01 Dose: 125 mls/hr Sodium Chloride (Normal Saline) 1,000 mls @ 125 [facility]ls[facility] Last Admin: 12/23/19 01:54 Dose: 125 mls/hr Cefazolin Sodium/Dextrose 2 gm (/ Premix) 50 mls @ 100 mls/hr IV ONCALL ONE Stop: 12/22/19 11:29 Last Admin: 12/22/19 13:20 Dose: 100 mls/hr Sodium Chloride (Normal Saline) 500 mls @ 999 mls/hr IV .BOLUS ONE Stop: 12/22/19 12:41 Last Admin: 12/22/19 12:26 Dose: 999 mls/hr Cefazolin Sodium/Dextrose 1 gm (/ Premix) 50 mls @ 100 mls/hr IV Q8H [facility] Stop: 12/23/19 12:29 Last Admin: 12/23/19 11:51 Dose: 100 mls/hr Sodium Chloride (Normal Saline) 500 mls @ 500 mls/hr IV .BOLUS ONE Stop: 12/23/19 07:07 Last Admin: 12/23/19 06:44 Dose: 500 mls/hr Midazolam HCl (Versed 1 Mg/Ml) Confirm Administered Dose 2 mg .ROUTE .STK-MED ONE Stop: 12/22/19 12:35 Midazolam HCl (Versed 1 Mg/Ml) Confirm Administered Dose 2 mg .ROUTE .STK-MED ONE Stop: 12/22/19 13:32 Ondansetron HCl (Zofran) 4 mg IVPUSH ONETIME ONE Stop: 12/20/19 19:03 Last Admin: 12/20/19 23:42 Dose: Not Given Phenylephrine HCl (Collin-Synephrine) Confirm Administered Dose 10 mg .ROUTE .STK- MED ONE Stop: 12/22/19 13:09 Potassium Chloride (Klor-Con M20) 40 meq PO ONETIME ONE Stop: 12/23/19 12:01 Last Admin: 12/23/19 11:51 Dose: 40 meq Propofol (Diprivan 20 Ml) Confirm Administered Dose 200 mg .ROUTE .STK-MED ONE Stop: 12/22/19 12:35 - Exam Quality Assessment: Supplemental Oxygen General: Alert, Oriented, Cooperative, No Acute Distress Lungs: Normal Respiratory Effort Cardiovascular: Regular Rate, Regular Rhythm GI/Abdominal Exam: Soft, No Distention Extremities: No Pedal Edema Skin: Warm, Dry Psy/Mental Status: Alert, Normal Affect Sepsis Event Note - Evaluation Sepsis Screening Result: Sepsis Risk - Focused Exam Vital Signs: Vital Signs Temp Temp Pulse Resp BP Pulse Ox 12/24/19 14:45 37.2 C 93 18 117/54 L 99 12/24/19 11:00 37.2 C 99 18 116/55 L 99 12/24/19 07:00 37.1 C 99 18 152/59 H 95 Date Exam was Performed: 12/24/19 Time Exam was Performed: 15:12 - Problem List Review Problem List Initiated/Reviewed/Updated: Yes - My Orders Last 24 Hours: My Active Orders 12/24/19 10:09 DC Torres Catheter [Urinary Catheter Removal] [RC] Per Unit Routine Magnesium Hydroxide [Milk of Magnesia] 30 ml PO BID PRN 12/25/19 05:00 CBC W/O DIFF,HEMOGRAM [HEME] Timed (1) - Plan Plan:: ASSESSMENT / PLAN RIGHT INTERTROCHANTERIC HIP FRACTURE-secondary to fall. Surgery intervention with ORIF on 12/21. Pain fairly well controlled and not moving great but slowly improving. -Saline lock IV -Physical therapy -Partial weightbearing on the right leg -Pain control -Pressure reducing mattress and position of comfort for hip fracture -Orthopedic follow-up per Dr Ajay Lazcano HYPERTENSION-vital signs stable. -Continue home medications HYPOTHYROIDISM -Levothyroxine daily OSTEOPOROSIS- reports first hip fracture at age 52 years. Has had chronic joint/ bone pain. 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 -She has had chemotherapy for 3 months. Annual follow up at [facility]- next due January 2020. Maintenance issues -Nutrition: Regular diet -Torres catheter- placed in ER for right hip fracture and strict I&O, plan is to remove today -DVT: SCD -GI; Protonix 40mg daily Disposition: I would anticipate discharge to a snf facility for subacute rehab, potentially tomorrow if stable overnight Primary care provider: Dr. Power, [facility] and [facility] Shoaib Zhang MD
--- NOTE | 2019-12-24 15:42 | PCM.SURGPN ---
- General Info Date of Service: 12/24/19 Date of Surgery/Procedure: 12/22/19 POD#: 2 Functional Status: Reports: Tolerating Diet - Review of Systems General: Reports: No Symptoms Musculoskeletal: Reports: Leg Pain Neurological: Reports: No Symptoms Psychiatric: Reports: No Symptoms - Patient Data Vitals - Most Recent: Last Vital Signs Temp 37.2 C 12/24/19 14:45 Pulse 93 12/24/19 14:45 Resp 18 12/24/19 14:45 BP 117/54 L 12/24/19 14:45 Pulse Ox 99 12/24/19 14:45 Weight - Most Recent: 79.832 kg I&O - Last 24 Hours: Intake & Output 12/24/19 12/24/19 12/24/19 06:59 14:59 22:59 Intake Total 300 200 Output Total 800 Balance -500 200 Lab Results Last 24 Hrs: Laboratory Results - last 24 hr 12/20/19 12/24/19 12/24/19 Range/Units 17:10 05:30 05:30 WBC 14.5 H (4.5-11.0) K/uL RBC 2.88 L (3.30-5.50) M/uL Hgb 8.4 L (12.0-15.0) g/dL Hct 26.1 L (36.0-48.0) % MCV 91 (80-98) fL MCH 29 (27-31) pg MCHC 32 (32-36) % Plt Count 241 (150-400) K/uL Sodium 133 L (140-148) mmol/L Potassium 3.8 (3.6-5.2) mmol/L Chloride 102 (100-108) mmol/L Carbon Dioxide 26 (21-32) mmol/L Anion Gap 8.8 (5.0-14.0) mmol/L BUN 11 (7-18) mg/dL Creatinine 0.7 (0.6-1.0) mg/dL Est Cr Clr Drug Dosing 62.50 mL/min Estimated GFR (MDRD) > 60 (>60) Glucose 102 (74-106) mg/dL Calcium 7.8 L (8.5-10.1) mg/dL Myoglobin 59 H (25-58) ng/mL Med Orders - Current: Current Medications Acetaminophen (Tylenol) 650 mg PO Q4H PRN PRN Reason: Pain (Mild 1-3)/fever Albuterol (Proventil Neb Soln) 2.5 mg NEB Q4H PRN PRN Reason: Shortness Of Breath/wheezing Bandage/Support Products ( Nasal Torch Burner) 1 applic NASBOTH BID REPLACED BY [facility] Stop: 12/29/19 21:01 Last Admin: 12/24/19 09:10 Dose: 1 applic Docusate Sodium (Colace) 100 mg PO BID PRN PRN Reason: Constipation Enoxaparin Sodium (Lovenox) 40 mg SUBCUT DAILY REPL[facility] Last Admin: 12/24/19 09:09 Dose: 40 mg Hydromorphone HCl (Dilaudid) 1 mg IVPUSH Q2H PRN PRN Reason: Pain (severe 7-10) Last Admin: 12/22/19 22:48 Dose: 1 mg Levothyroxine Sodium (Synthroid) 100 mcg PO DAILY@0730 REPLACED [facility] Last Admin: 12/24/19 07:07 Dose: 100 mcg Losartan Potassium (Cozaar) 12.5 mg PO BEDTIME REPLACED BY [facility] Last Admin: 12/23/19 20:56 Dose: 12.5 mg Magnesium Hydroxide (Milk Of Magnesia) 30 ml PO BID PRN PRN Reason: Constipation Last Admin: 12/24/19 14:23 Dose: 30 ml Melatonin (Melatonin) 6 mg PO BEDTIME PRN PRN Reason: Insomnia Last Admin: 12/23/19 20:55 Dose: 6 mg Metoprolol Succinate (Toprol Xl) 25 mg PO BEDTIME REPLACED BY [facility] Last Admin: 12/23/19 20:56 Dose: 25 mg Ondansetron HCl (Zofran Odt) 4 mg PO Q6H PRN PRN Reason: Nausea able to take PO Ondansetron HCl (Zofran) 4 mg IV Q4H PRN PRN Reason: Nausea/Vomiting Last Admin: 12/22/19 15:17 Dose: 4 mg Oxycodone/Acetaminophen (Percocet 325-5 Mg) 1 - 2 tab PO Q4H PRN PRN Reason: Pain (moderate 4-6) Last Admin: 12/24/19 15:13 Dose: 2 tab Pantoprazole Sodium (Protonix) 40 mg PO DAILY@0730 [facility]PL[facility] Last Admin: 12/24/19 07:06 Dose: 40 mg Discontinued Medications Hydrocodone Bitart/Acetaminophen ([place] 325-5 Mg) 2 tab PO Q4H PRN PRN Reason: Pain (moderate 4-6) Last Admin: 12/23/19 22:41 Dose: 2 tab Bupivacaine HCl (Marcaine 0.5%) Confirm Administered Dose 30 ml .ROUTE .STK-MED ONE Stop: 12/22/19 07:10 Last Admin: 12/22/19 14:13 Dose: 20 ml Fentanyl (Sublimaze) Confirm Administered Dose 100 mcg .ROUTE .STK-MED ONE Stop: 12/22/19 12:35 Heparin Sodium (Porcine) (Heparin Sodium) 5,000 units SUBCUT Q12H [facility] Stop: 12/21/19 20:31 Last Admin: 12/21/19 21:08 Dose: 5,000 units Hydromorphone HCl (Dilaudid) 0.5 mg IVPUSH Q1H PRN PRN Reason: Pain (moderate 4-6) Last Admin: 12/20/19 16:58 Dose: 0.5 mg Hydromorphone HCl (Dilaudid) 1 mg IVPUSH ONETIME ONE Stop: 12/20/19 19:03 Last Admin: 12/20/19 19:10 Dose: 1 mg Sodium Chloride (Normal Saline) 1,000 mls @ 500 mls/hr IV ASDIRECTED REPLACED BY [facility] Last Admin: 12/20/19 17:00 Dose: 500 mls/hr Sodium Chloride (Normal Saline) 1,000 mls @ 125 mls/hr IV ASDIRECTED REPLACED BY [facility] Last Admin: 12/21/19 04:01 Dose: 125 mls/hr Sodium Chloride (Normal Saline) 1,000 mls @ 125 mls/hr IV ASDIRECTED REPLACED BY [facility] Last Admin: 12/23/19 01:54 Dose: 125 mls/hr Cefazolin Sodium/Dextrose 2 gm (/ Premix) 50 mls @ 100 mls/hr IV ONCALL ONE Stop: 12/22/19 11:29 Last Admin: 12/22/19 13:20 Dose: 100 mls/hr Sodium Chloride (Normal Saline) 500 mls @ 999 mls/hr IV .BOLUS ONE Stop: 12/22/19 12:41 Last Admin: 12/22/19 12:26 Dose: 999 mls/hr Cefazolin Sodium/Dextrose 1 gm (/ Premix) 50 mls @ 100 mls/hr IV Q8H [facility] Stop: 12/23/19 12:29 Last Admin: 12/23/19 11:51 Dose: 100 mls/hr Sodium Chloride (Normal Saline) 500 mls @ 500 mls/hr IV .BOLUS ONE Stop: 12/23/19 07:07 Last Admin: 12/23/19 06:44 Dose: 500 mls/hr Midazolam HCl (Versed 1 Mg/Ml) Confirm Administered Dose 2 mg .ROUTE .STK-MED ONE Stop: 12/22/19 12:35 Midazolam HCl (Versed 1 Mg/Ml) Confirm Administered Dose 2 mg .ROUTE .STK-MED ONE Stop: 12/22/19 13:32 Ondansetron HCl (Zofran) 4 mg IVPUSH ONETIME ONE Stop: 12/20/19 19:03 Last Admin: 12/20/19 23:42 Dose: Not Given Phenylephrine HCl (Collin-Synephrine) Confirm Administered Dose 10 mg .ROUTE .STK- MED ONE Stop: 12/22/19 13:09 Potassium Chloride (Klor-Con M20) 40 meq PO ONETIME ONE Stop: 12/23/19 12:01 Last Admin: 12/23/19 11:51 Dose: 40 meq Propofol (Diprivan 20 Ml) Confirm Administered Dose 200 mg .ROUTE .STK-MED ONE Stop: 12/22/19 12:35 - Exam Wound/Incisions: No Drainage General: Alert, Oriented Extremities: Leg Pain, Limited Range of Motion, Other (moderate swelling right hip and thigh) Neurological: No New Focal Deficit Psy/Mental Status: Alert, Normal Affect, Normal Mood Sepsis Event Note - Evaluation Sepsis Screening Result: Sepsis Risk - Focused Exam Vital Signs: Vital Signs Temp Temp Pulse Resp BP Pulse Ox 12/24/19 14:45 37.2 C 93 18 117/54 L 99 12/24/19 11:00 37.2 C 99 18 116/55 L 99 12/24/19 07:00 37.1 C 99 18 152/59 H 95 Date Exam was Performed: 12/24/19 Time Exam was Performed: 15:37 - Problem List & Annotations (1) Acute postoperative anemia due to expected blood loss SNOMED Code(s): 14502943993270225 Code(s): D62 - ACUTE POSTHEMORRHAGIC ANEMIA Status: Acute Current Visit: Yes (2) Intertrochanteric fracture, hip SNOMED Code(s): 552369286 Code(s): S72.143A - DISPLACED INTERTROCHANTERIC FRACTURE OF UNSP FEMUR, INIT Status: Acute Priority: High Current Visit: Yes Onset Date: ~12/20/19 (3) Status post open reduction and internal fixation (ORIF) of fracture SNOMED Code(s): 934004068 Code(s): Z98.890 - OTHER SPECIFIED POSTPROCEDURAL STATES; Z87.81 - PERSONAL HISTORY OF (HEALED) TRAUMATIC FRACTURE Status: Acute Current Visit: Yes Annotation/Comment:: Right hip with IM nail/marquita - Problem List Review Problem List Initiated/Reviewed/Updated: Yes - My Orders Last 24 Hours: Active Orders 24 hr Category Date Time Status DC Torres Catheter [Urinary Catheter Removal] [RC] Per Care 12/24/19 10:09 Active Unit Routine CBC W/O DIFF,HEMOGRAM [HEME] Timed (1) Lab 12/25/19 05:00 Ordered Magnesium Hydroxide [Milk of Magnesia] Med 12/24/19 10:09 Active 30 ml PO BID PRN Medication Orders Acetaminophen (Tylenol) 650 mg PO Q4H PRN PRN Reason: Pain (Mild 1-3)/fever Albuterol (Proventil Neb Soln) 2.5 mg NEB Q4H PRN PRN Reason: Shortness Of Breath/wheezing Bandage/Support Products ( Nasal Torch Burner) 1 applic NASBOTH BID REPLACED BY [facility] Stop: 12/29/19 21:01 Last Admin: 12/24/19 09:10 Dose: 1 applic Admin: 12/23/19 20:56 Dose: 1 applic Admin: 12/23/19 08:37 Dose: 1 applic Admin: 12/22/19 22:48 Dose: 1 applic Docusate Sodium (Colace) 100 mg PO BID PRN PRN Reason: Constipation Enoxaparin Sodium (Lovenox) 40 mg SUBCUT DAILY REPLACED BY [facility] Last Admin: 12/24/19 09:09 Dose: 40 mg Admin: 12/23/19 08:36 Dose: 40 mg Hydromorphone HCl (Dilaudid) 1 mg IVPUSH Q2H PRN PRN Reason: Pain (severe 7-10) Last Admin: 12/22/19 22:48 Dose: 1 mg Admin: 12/22/19 17:46 Dose: 1 mg Admin: 12/22/19 15:14 Dose: 1 mg Admin: 12/22/19 12:00 Dose: 1 mg Admin: 12/22/19 09:20 Dose: 1 mg Admin: 12/22/19 07:02 Dose: 1 mg Admin: 12/22/19 05:05 Dose: 1 mg Admin: 12/22/19 02:51 Dose: 1 mg Admin: 12/21/19 23:33 Dose: 1 mg Admin: 12/21/19 21:06 Dose: 1 mg Admin: 12/21/19 17:12 Dose: 1 mg Admin: 12/21/19 08:11 Dose: 1 mg Admin: 12/21/19 04:01 Dose: 1 mg Admin: 12/20/19 23:45 Dose: 1 mg Admin: 12/20/19 21:24 Dose: 1 mg Levothyroxine Sodium (Synthroid) 100 mcg PO DAILY@0730 REPLACED BY [facility] Last Admin: 12/24/19 07:07 Dose: 100 mcg Admin: 12/23/19 08:36 Dose: 100 mcg Admin: 12/22/19 06:59 Dose: 100 mcg Admin: 12/21/19 08:10 Dose: 100 mcg Losartan Potassium (Cozaar) 12.5 mg PO BEDTIME REPLACED BY [facility] Last Admin: 12/23/19 20:56 Dose: 12.5 mg Admin: 12/22/19 21:05 Dose: 12.5 mg Admin: 12/21/19 21:09 Dose: 12.5 mg Admin: 12/20/19 20:32 Dose: 12.5 mg Magnesium Hydroxide (Milk Of Magnesia) 30 ml PO BID PRN PRN Reason: Constipation Last Admin: 12/24/19 14:23 Dose: 30 ml Melatonin (Melatonin) 6 mg PO BEDTIME PRN PRN Reason: Insomnia Last Admin: 12/23/19 20:55 Dose: 6 mg Admin: 12/22/19 22:48 Dose: 6 mg Metoprolol Succinate (Toprol Xl) 25 mg PO BEDTIME [facility] Last Admin: 12/23/19 20:56 Dose: 25 mg Admin: 12/22/19 21:05 Dose: 25 mg Admin: 12/21/19 21:09 Dose: 25 mg Admin: 12/20/19 20:32 Dose: 25 mg Ondansetron HCl (Zofran Odt) 4 mg PO Q6H PRN PRN Reason: Nausea able to take PO Ondansetron HCl (Zofran) 4 mg IV Q4H PRN PRN Reason: Nausea/Vomiting Last Admin: 12/22/19 15:17 Dose: 4 mg Oxycodone/Acetaminophen (Percocet 325-5 Mg) 1 - 2 tab PO Q4H PRN PRN Reason: Pain (moderate 4-6) Last Admin: 12/24/19 15:13 Dose: 2 tab Admin: 12/24/19 11:06 Dose: 2 tab Admin: 12/24/19 07:05 Dose: 2 tab Admin: 12/24/19 02:27 Dose: 2 tab Admin: 12/23/19 19:46 Dose: 2 tab Admin: 12/23/19 16:03 Dose: 2 tab Admin: 12/23/19 11:50 Dose: 2 tab Admin: 12/23/19 07:21 Dose: 2 tab Admin: 12/23/19 00:28 Dose: 2 tab Admin: 12/22/19 19:49 Dose: 2 tab Pantoprazole Sodium (Protonix) 40 mg PO DAILY@0730 [facility] Last Admin: 12/24/19 07:06 Dose: 40 mg Admin: 12/23/19 08:36 Dose: 40 mg Admin: 12/22/19 06:59 Dose: 40 mg Admin: 12/21/19 08:10 Dose: 40 mg - Assessment Assessment (Free Text/Narrative):: Very limited mobility, has only been up to chair with maximal assist getting out of bed, pain fairly well controlled at rest, drop in H/H post op not unexpected, - Plan Plan (Free Text/Narrative):: Continue PT/OT PWB on right, she had wanted to go home with Home Health but it does not appear she will be independent enough with activity to do this safely, Discharge Planning working on SNF referral.
[2019-12-24] MEDS: Metoprolol Succinate 25 MG Tab.ER PO SCH (20:05)
[2019-12-24] MEDS: Losartan 25 MG Tab PO SCH (20:05)
[2019-12-25] MEDS: Acetaminophen/oxyCODONE 325-5 MG Tab PO PRN (01:26)
[2019-12-25] MEDS ORDERED: Sodium Chloride 0.9% 1,000 ML IV SCH ×2 (01:30→05:30)
[2019-12-25] MEDS: Magnesium Hydroxide 400 MG/5 ML Susp 30 ML Cup PO PRN (03:59)
[2019-12-25] MEDS: Levothyroxine 100 MCG Tab PO SCH (07:58)
[2019-12-25] MEDS: Pantoprazole 40 MG Tab.CR PO SCH (07:58)
[2019-12-25] MEDS ORDERED: Bisacodyl 10 MG Supp RECTAL ONE (08:00)
[2019-12-25] MEDS: Enoxaparin 40 MG/0.4 ML Syringe SUBCUT SCH (08:01)
[2019-12-25] MEDS: Nozin Nasal Sanitizer NASBOTH SCH (08:01)
--- NOTE | 2019-12-25 10:46 | PCM.DCSUM1 ---
Discharge Summary - Hospital Course Brief History: 84-year-old female with history of essential hypertension, acquired hypothyroidism and previous bladder and renal cell cancer who presented with right hip pain after falling at home. She was admitted for surgical management of a right hip fracture. Diagnosis: Stroke: No - Discharge Data Discharge Date: 12/25/19 Discharge Disposition: DC/Tfer to SNF 03 Condition: Good - Referral to Home Health Primary Care Physician: PCP None - Discharge Diagnosis/Problem(s) (1) Intertrochanteric fracture, hip SNOMED Code(s): 064934201 ICD Code: S72.143A - DISPLACED INTERTROCHANTERIC FRACTURE OF UNSP FEMUR, INIT Status: Acute Priority: High Current Visit: Yes Onset Date: ~ (2) Status post open reduction and internal fixation (ORIF) of fracture SNOMED Code(s): 443563269 ICD Code: Z98.890 - OTHER SPECIFIED POSTPROCEDURAL STATES; Z87.81 - PERSONAL HISTORY OF (HEALED) TRAUMATIC FRACTURE Status: Acute Current Visit: Yes Problem Details: Right hip with IM nail/marquita (3) Acute postoperative anemia due to expected blood loss SNOMED Code(s): 21231541354015791 ICD Code: D62 - ACUTE POSTHEMORRHAGIC ANEMIA Status: Acute Current Visit : Yes (4) Hypertension SNOMED Code(s): 83073464 ICD Code: I10 - ESSENTIAL (PRIMARY) HYPERTENSION Status: Chronic Priority : High Current Visit: Yes Qualifiers: Hypertension type: essential hypertension Qualified Code(s): I10 - Essential (primary) hypertension (5) Hypothyroidism SNOMED Code(s): 24401859 ICD Code: E03.9 - HYPOTHYROIDISM, UNSPECIFIED Status: Chronic Priority: Low Current Visit: Yes Qualifiers: Hypothyroidism type: acquired Qualified Code(s): E03.9 - Hypothyroidism, unspecified (6) History of cancer SNOMED Code(s): 207501681 ICD Code: Z85.9 - PERSONAL HISTORY OF MALIGNANT NEOPLASM, UNSPECIFIED Status: Chronic Priority: Low Current Visit: Yes Problem Details: bladder and renal cell - Patient Summary/Data Consults: Consultations 12/20/19 20:05 Consult to Physician [CONS] Routine Consulting Provider: Ajay Lazcano Courtesy Call Completed to Consulting Physician: Yes: consult made by REBECCA BUSH Reason for Consult: right hip fracture Person Notified: Dr. Ajay Lazcano Date Notified: 12/20/19 Special Instructions: surgery on Sunday Consult to Spiritual Care [CONS] Routine Spiritual Care Reason for Consult: New Diagnosis Special Instructions: right hip fracture with surgery planned 12-22-2019 OT Evaluation and Treatment [CONS] Routine Please Evaluate and Treat. OT Reason for Consult: Discharge Planning Special Instructions: ADLs and adaptive devices This query below is only for informational purposes and is not editable. Admission Diagnosis/Problem: Hip fracture requiring operative repair PT Evaluation and Treatment [CONS] Routine Please Evaluate and Treat. PT Reason for Consult: Post op Ortho Surgery Special Instructions: Partial Weight Bearing on Right - approx 30% This query below is only for informational purposes and is not editable. Admission Diagnosis/Problem: Hip fracture requiring operative repair Hospital Course: Darius presented to the emergency room with severe right hip pain after falling at home. X-ray imaging in the emergency room suggested a displaced fracture of the right hip in the intertrochanteric region. Orthopedic services were contacted and surgical intervention was recommended. Patient was admitted to the hospital for pain control. The plan was for surgical intervention on Sunday after a late Sunday night admission. There were no acute issues on Sunday after hospital admission. On Sunday she had an uneventful surgical intervention with open reduction and internal fixation. She did have a more complicated fracture than initially expected and required a long intramedullary nail in the femur. Her postoperative course was relatively uneventful. She did have some low urine output which responded to IV fluid boluses. Her pain has been fairly well controlled using oxycodone. She does remain fairly weak and requires the assist of 2 to get around but is making progress slowly. She is allowed to be partial weightbearing on the right leg with 30% or less of the weight placed on the leg at one time. Vital signs have all been stable. She did have some anemia postoperatively which was expected but she did not require a blood transfusion. She has not had any fevers. She has been able to void after the Torres catheter was removed. She is stable and safe for discharge to the rehab facility at this time. She will be on enoxaparin for a total of 30 days with 27 more doses remaining after hospital discharge. - Patient Instructions Diet: Regular Diet as Tolerated Activity: Partial Weight Bearing (30% weight bearing right leg ) Showering/Bathing: May Shower Wound/Incision Care: Keep Operative Site/Wound Site Clean and Dry Notify Provider of: Fever, Increased Pain, Swelling and Redness, Drainage Other/Special Instructions: 1. Referral to physical and occupational therapy for strengthening after a right hip fracture requiring surgical repair. Patient may be 30% weightbearing on the right leg. 2. Code status - FULL CODE. 3. Recheck hemoglobin 12/28 - anemia. 4. Enoxaparin 40 mg daily x27 doses starting 12/25 - Discharge Plan *PRESCRIPTION DRUG MONITORING PROGRAM REVIEWED*: Not Applicable *COPY OF PRESCRIPTION DRUG MONITORING REPORT IN PATIENT ISABELLA: Not Applicable Prescriptions/Med Rec: Acetaminophen 1,000 mg PO TID #200 tablet Enoxaparin [Lovenox] 40 mg SUBCUT DAILY #27 syringe oxyCODONE 10 mg PO Q4H PRN #60 tab PRN Reason: Pain Home Medications: Home Meds Cholecalciferol (Vitamin D3) [Vitamin D3] 1,000 unit PO DAILY 12/20/19 [History] Losartan [Cozaar] 12.5 mg PO DAILY 12/20/19 [History] Metoprolol Succinate [Toprol XL] 25 mg PO DAILY 12/20/19 [History] Pantoprazole [ProTONIX] 40 mg PO DAILY 12/20/19 [History] Levothyroxine [Synthroid] 100 mcg PO DAILY 12/21/19 [History] Acetaminophen 1,000 mg PO TID #200 tablet 12/25/19 [Rx] Enoxaparin [Lovenox] 40 mg SUBCUT DAILY #27 syringe 12/25/19 [Rx] oxyCODONE 10 mg PO Q4H PRN #60 tab 12/25/19 [Rx] Oxygen Therapy Mode: Room Air Patient Handouts: Hip Fracture Treated With ORIF, Care After Referrals: Ajay Lazcano MD [Physician] - - Discharge Summary/Plan Comment DC Time >30 min.: Yes ([facility]) - Patient Data Vitals - Most Recent: Last Vital Signs Temp 37.4 C 12/25/19 06:00 Pulse 97 12/25/19 06:00 Resp 16 12/25/19 06:00 BP 161/73 H 12/25/19 06:00 Pulse Ox 92 L 12/25/19 06:00 Weight - Most Recent: 79.832 kg I&O - Last 24 hours: Intake & Output 12/24/19 12/25/19 12/25/19 22:59 06:59 14:59 Intake Total 200 400 Output Total 200 Balance 200 200 Lab Results - Last 24 hrs: Laboratory Results - last 24 hr 12/20/19 12/25/19 Range/Units 17:10 04:35 WBC 15.3 H (4.5-11.0) K/uL RBC 3.06 L (3.30-5.50) M/uL Hgb 8.9 L (12.0-15.0) g/dL Hct 27.4 L (36.0-48.0) % MCV 90 (80-98) fL MCH 29 (27-31) pg MCHC 33 (32-36) % Plt Count 278 (150-400) K/uL Myoglobin 59 H (25-58) ng/mL Med Orders - Current: Current Medications Acetaminophen (Tylenol) 650 mg PO Q4H PRN PRN Reason: Pain (Mild 1-3)/fever Albuterol (Proventil Neb Soln) 2.5 mg NEB Q4H PRN PRN Reason: Shortness Of Breath/wheezing Bandage/Support Products ( Nasal Neon Molder) 1 applic NASBOTH BID [facility] Stop: 12/29/19 21:01 Last Admin: 12/25/19 08:01 Dose: 1 applic Docusate Sodium (Colace) 100 mg PO BID PRN PRN Reason: Constipation Enoxaparin Sodium (Lovenox) 40 mg SUBCUT DAILY [facility] Last Admin: 12/25/19 08:01 Dose: 40 mg Hydromorphone HCl (Dilaudid) 1 mg IVPUSH Q2H PRN PRN Reason: Pain (severe 7-10) Last Admin: 12/22/19 22:48 Dose: 1 mg Sodium Chloride (Normal Saline) 1,000 mls @ 125 mls/hr IV ASDIRECTED [facility] Levothyroxine Sodium (Synthroid) 100 mcg PO DAILY@0730 [facility] Last Admin: 12/25/19 07:58 Dose: 100 mcg Losartan Potassium (Cozaar) 12.5 mg PO BEDTIME [facility] Last Admin: 12/24/19 20:05 Dose: 12.5 mg Magnesium Hydroxide (Milk Of Magnesia) 30 ml PO BID PRN PRN Reason: Constipation Last Admin: 12/24/19 14:23 Dose: 30 ml Melatonin (Melatonin) 6 mg PO BEDTIME PRN PRN Reason: Insomnia Last Admin: 12/23/19 20:55 Dose: 6 mg Metoprolol Succinate (Toprol Xl) 25 mg PO BEDTIME [facility] Last Admin: 12/24/19 20:05 Dose: 25 mg Ondansetron HCl (Zofran Odt) 4 mg PO Q6H PRN PRN Reason: Nausea able to take PO Last Admin: 12/25/19 07:50 Dose: 4 mg Ondansetron HCl (Zofran) 4 mg IV Q4H PRN PRN Reason: Nausea/Vomiting Last Admin: 12/22/19 15:17 Dose: 4 mg Oxycodone/Acetaminophen (Percocet 325-5 Mg) 1 - 2 tab PO Q4H PRN PRN Reason: Pain (moderate 4-6) Last Admin: 12/25/19 01:26 Dose: 2 tab Pantoprazole Sodium (Protonix) 40 mg PO DAILY@0730 [facility] Last Admin: 12/25/19 07:58 Dose: 40 mg Discontinued Medications Hydrocodone Bitart/Acetaminophen (Spearfish 325-5 Mg) 2 tab PO Q4H PRN PRN Reason: Pain (moderate 4-6) Last Admin: 12/23/19 22:41 Dose: 2 tab Bisacodyl (Dulcolax) 10 mg RECTAL ONETIME ONE Stop: 12/25/19 08:01 Last Admin: 12/25/19 07:58 Dose: 10 mg Bupivacaine HCl (Marcaine 0.5%) Confirm Administered Dose 30 ml .ROUTE .STK-MED ONE Stop: 12/22/19 07:10 Last Admin: 12/22/19 14:13 Dose: 20 ml Fentanyl (Sublimaze) Confirm Administered Dose 100 mcg .ROUTE .STK-MED ONE Stop: 12/22/19 12:35 Heparin Sodium (Porcine) (Heparin Sodium) 5,000 units SUBCUT Q12H [facility] Stop: 12/21/19 20:31 Last Admin: 12/21/19 21:08 Dose: 5,000 units Hydromorphone HCl (Dilaudid) 0.5 mg IVPUSH Q1H PRN PRN Reason: Pain (moderate 4-6) Last Admin: 05/16/20 16:58 Dose: 0.5 mg Hydromorphone HCl (Dilaudid) 1 mg IVPUSH ONETIME ONE Stop: 12/20/19 19:03 Last Admin: 12/20/19 19:10 Dose: 1 mg Sodium Chloride (Normal Saline) 1,000 mls @ 500 mls/hr IV ASDIRECTED [facility] Last Admin: 12/20/19 17:00 Dose: 500 mls/hr Sodium Chloride (Normal Saline) 1,000 mls @ 125 mls/hr IV ASDIRECTED [facility] Last Admin: 12/21/19 04:01 Dose: 125 mls/hr Sodium Chloride (Normal Saline) 1,000 mls @ 125 mls/hr IV ASDIRECTED [facility] Last Admin: 12/23/19 01:54 Dose: 125 mls/hr Cefazolin Sodium/Dextrose 2 gm (/ Premix) 50 mls @ 100 mls/hr IV ONCALL ONE Stop: 12/22/19 11:29 Last Admin: 12/22/19 13:20 Dose: 100 mls/hr Sodium Chloride (Normal Saline) 500 mls @ 999 mls/hr IV .BOLUS ONE Stop: 12/22/19 12:41 Last Admin: 12/22/19 12:26 Dose: 999 mls/hr Cefazolin Sodium/Dextrose 1 gm (/ Premix) 50 mls @ 100 mls/hr IV Q8H [facility] Stop: 12/23/19 12:29 Last Admin: 12/23/19 11:51 Dose: 100 mls/hr Sodium Chloride (Normal Saline) 500 mls @ 500 mls/hr IV .BOLUS ONE Stop: 12/23/19 07:07 Last Admin: 12/23/19 06:44 Dose: 500 mls/hr Sodium Chloride (Normal Saline) 1,000 mls @ 250 mls/hr IV ASDIRECTED [facility] Stop: 12/25/19 05:30 Last Admin: 12/25/19 01:37 Dose: 250 mls/hr Midazolam HCl (Versed 1 Mg/Ml) Confirm Administered Dose 2 mg .ROUTE .STK-MED ONE Stop: 12/22/19 12:35 Midazolam HCl (Versed 1 Mg/Ml) Confirm Administered Dose 2 mg .ROUTE .STK-MED ONE Stop: 12/22/19 13:32 Ondansetron HCl (Zofran) 4 mg IVPUSH ONETIME ONE Stop: 12/20/19 19:03 Last Admin: 12/20/19 23:42 Dose: Not Given Phenylephrine HCl (Collin-Synephrine) Confirm Administered Dose 10 mg .ROUTE .STK- MED ONE Stop: 12/22/19 13:09 Potassium Chloride (Klor-Con M20) 40 meq PO ONETIME ONE Stop: 12/23/19 12:01 Last Admin: 12/23/19 11:51 Dose: 40 meq Propofol (Diprivan 20 Ml) Confirm Administered Dose 200 mg .ROUTE .STK-MED ONE Stop: 12/22/19 12:35
--- NOTE | 2020-01-12 17:21 | OR ---
DATE OF PROCEDURE: 12/22/2019 SURGEON: Ajay Lazcano MD PREOPERATIVE DIAGNOSES: Peritrochanteric fracture, right hip; intertrochanteric fracture with extension below the lesser trochanter medially. POSTOPERATIVE DIAGNOSES: Peritrochanteric fracture, right hip; intertrochanteric fracture with extension below the lesser trochanter medially. PROCEDURES: Closed reduction and intramedullary fixation of right hip using long Synthes TFN marquita. ANESTHESIA: Spinal with sedation. INDICATIONS: Ms. Helms is an 84-year-old female who sustained a fall at her home, here at the [facility], resulting in right hip fracture. She was admitted to the hospital, had evaluation by the hospitalist, and is now taken to the operating room for fixation of the fracture. The risks, benefits, and potential complications of the procedure were discussed. DESCRIPTION OF PROCEDURE: After adequate anesthesia was obtained, the patient was placed supine on the fracture table. Mild gentle countertraction was placed through the left leg. Right leg was slightly adducted and traction placed through the traction boot. Fluoroscopic imaging was used to confirm reduction. The right hip and leg were then prepped and draped in a sterile fashion. A small incision was made just above the level of the greater trochanter, carried down through the subcutaneous tissues and the tensor fascia was then split in line with its fibers. Blunt dissection was carried down to the tip of the trochanter. A guidepin was then placed into the trochanter using fluoroscopic assistance. Flexible reamer was then placed over the guidepin and into the intramedullary canal. A long guidewire was then placed into the canal, across the fracture site, and down to the knee. Position was confirmed using fluoroscopy. Flexible reamers were then utilized up to a size 13 and a 12-mm diameter marquita was selected. Length was measured, and the marquita was then opened and assembled onto the insertion device. The marquita was inserted across the fracture and position confirmed using fluoroscopy. This was then taken down to just above her total knee arthroplasty. This was tapped down so that the helical blade will be in the center position on the AP x-ray. A separate stab incision was then made just distal to the trochanter and the guide for the helical blade was placed and advanced down to the lateral cortex of the trochanter. A guidepin was placed. A lateral view was then obtained, and the guidepin was repositioned in the central portion. Length was measured. Lateral cortex was drilled and helical blade was then advanced flush with the lateral cortex. Screw insertion assembly was removed. The set screw was tightened. The insertion assembly was then completely removed and position was confirmed using fluoroscopy in AP and lateral images. Attention was then turned to the distal end of the marquita. The lateral of the locking screw holes was obtained. A small stab incision was made through the skin and IT band. A drill hole was then placed in a free-hand technique through the sliding screw position. This was measured and screws were then inserted flush with the lateral cortex. Final position was confirmed. Incisions were irrigated. Tensor fascia was closed in interrupted fashion, and the most superior incision. The distal incisions were closed with 2-0 Vicryl and 3-0 Monocryl. Closure of the superior incision continued with 2-0 Vicryl and 3-0 Monocryl. Steri-Strips were applied. Sterile dressing was then placed. The patient was taken from the operating room in a stable condition. There were no complications. Ajay Lazcano MD /[id number] [facility]
== END 2019-12-25 13:15 | DRG 481 ==
LOC: JP.ED 16:08 → JP.MS 19:07
PROVIDERS: ADMIT Hospitalist; ATTEND Specialist
PROC: 0QS636Z Reposition Right Upper Femur with Intramedullary Internal Fixation Device, Percutaneous Approach (ICD-10-PCS; principal; 2019-12-22)
DX: S72.091A Other fracture of head and neck of right femur, initial encounter for closed fracture (principal); W18.30XA Fall on same level, unspecified, initial encounter; H54.7 Unspecified visual loss; S72.141A Displaced intertrochanteric fracture of right femur, initial encounter for closed fracture; D62 Acute posthemorrhagic anemia; C64.9 Malignant neoplasm of unspecified kidney, except renal pelvis; I10 Essential (primary) hypertension; E03.9 Hypothyroidism, unspecified; Z98.49 Cataract extraction status, unspecified eye; Z90.49 Acquired absence of other specified parts of digestive tract; E78.00 Pure hypercholesterolemia, unspecified; M81.0 Age-related osteoporosis without current pathological fracture; Z96.649 Presence of unspecified artificial hip joint; Z96.659 Presence of unspecified artificial knee joint; Z79.890 Hormone replacement therapy; Z79.899 Other long term (current) drug therapy; Z85.528 Personal history of other malignant neoplasm of kidney; W19.XXXA Unspecified fall, initial encounter
CPT/HCPCS: 36415; 51702; 71045; 73502; 80053; 83874; 85027; 85610; 93005; 96374; 99284; 99285; J1170; J7030; 76000; 80048; 81001; 85025; 93010; 94762; 97110-GP; 97162-GP; 97530-GP; A9270-GY; C1713; C1776; J0690; J1644; J1650; J2250; J2370; J2405; J2704; J3010; J3490; J7040